=== PATIENT | female | born 1930 | race Two or more races ===

== ENCOUNTER 2017-09-04 13:10 | Observation (INO) | payer MEDICARE, OTHER ==
[2017-09-04 14:05] LABS: Hematocrit 35 % (35-47); Hemoglobin 11.3 g/dl (12.0-16.0); Mean Corpuscular HGB Conc 33 g/dl (31-36); Mean Corpuscular Hemoglobin 31 pg (27-31); Mean Corpuscular Volume 95 fL (80-97); Mean Platelet Volume 11 um3 (7.4-10.4); Red Blood Count 3.66 10^6/ul (4.0-5.4); Red Cell Distribution Width 14 % (10.5-15); White Blood Count 13.7 10^3/ul (3.5-10.8)
[2017-09-04 14:06] LABS: Add Diff/Slide Review? Slide Review Added; Comments Flag Yes
[2017-09-04 14:19] LABS: BUN/Creatinine Ratio 24.1 (8-20); C Reactive Protein 123.24 mg/L (< 5.00); Calcium 9.5 mg/dL (8.6-10.3); EGFR African American 45.7 (>60); EGFR Non-African American 35.5 (>60); Globulin 3.2 g/dL (2-4); Potassium 4.7 mmol/L (3.5-5.0); Total Bilirubin 0.6 mg/dL (0.2-1.0); Total Protein 7.2 g/dL (6.4-8.9)
[2017-09-04 14:21] LABS: Troponin I 0.03 ng/mL (<0.04)
[2017-09-04] MEDS ORDERED: NS 0.9% 1000 ML* 1,000 ML IV ONE ×2 (14:28→15:23)
--- NOTE | 2017-09-04 15:00 | RAD ---
CLINICAL HISTORY: "Flank pain". Please evaluate for left hip fracture. COMPARISON: Similar CT examination dated October 22, 2011 TECHNIQUE: Noncontrast CT examination of the abdomen and pelvis from the lung bases through the initial tuberosities. FINDINGS: VISUALIZED LUNG BASES: The lungs exhibit groundglass opacification and subpleural parenchymal thickening progressed since the 2012 CT examination. ABDOMEN AND PELVIS: Evaluation of the solid organs and vasculature is limited without intravenous contrast. The liver, spleen, pancreas and adrenal glands are grossly normal in appearance. The gallbladder is normal. The left kidney is normal in appearance without focal mass, calcification or signs of hydronephrosis. At the right kidney there is a 4 mm calcification. There are no signs of hydronephrosis. Evaluation of the gastrointestinal tract is limited without oral contrast. The small and large bowel are not distended.The patient's normal appendix is identified in the right lower quadrant measuring 6 mm in diameter (image 50). There are scattered rectosigmoid diverticula but none exhibit focal inflammatory change. There is no gross retroperitoneal or mesenteric lymphadenopathy. The pelvic viscera is normal in appearance. The coarsely calcified abdominal aorta and iliac arteries are normal in course and diameter. Multilevel degenerative changes of the lower thoracic and lumbar spine includes loss of intervertebral disc height and multilevel vacuum disc phenomenon. There are anterior bridging osteophytes along the anterior lower thoracic spine. Degenerative changes of the bilateral hips include joint space narrowing, exuberant marginal osteophyte formation, sclerotic change of the articulating services as well as subchondral lucencies. There is no definite fracture or dislocation involving either hip. IMPRESSION: 1. Degenerative changes of the bilateral hips as described above without definite fracture or dislocation. 2. Findings in the lung bases could be seen in the setting of pulmonary edema or interstitial lung disease, progressive since the 2012 CT examination. 3. Diverticulosis without acute inflammatory changes characteristic of diverticulitis. 4. Additional chronic and degenerative changes described in body the report.
[2017-09-04] MEDS ORDERED: Aztreonam (*) 2 GM VIAL IVPB ONE (15:22)
[2017-09-04] MEDS ORDERED: Levofloxacin 500 MG IVPREMIX(* 500 MG/100 ML BAG IVPB ONE (15:23)
[2017-09-04 16:24] LABS: Urine Bacteria Absent (Absent); Urine Bilirubin Negative (Negative); Urine Glucose Negative (Negative); Urine Nitrite Negative (Negative)
[2017-09-04] MEDS ORDERED: Aztreonam (*) 1 GM in NS 0.9% 100 ML* 100 ML IVPB ONE ×4 (17:00)
[2017-09-04] MEDS ORDERED: Dextrose 50% Syringe 50 ML* 25 GM/50 ML SYRINGE IV PUSH PRN (17:15)
[2017-09-04] MEDS ORDERED: Docusate CAP* 100 MG PO PRN (17:17)
[2017-09-04] MEDS ORDERED: Nitroglycerin TAB 0.4 MG* 0.4 MG TAB SL PRN (17:17)
[2017-09-04] MEDS ORDERED: Polyethylene Glycol 3350* 17 GM PACKET PO PRN (17:17)
[2017-09-04] MEDS ORDERED: HYDROcodone/ACETAMIN 5-325 MG* 1 TAB PO PRN (17:17)
--- NOTE | 2017-09-04 17:18 | ED ---
Allen Oliveira Tecjoon, scribed for Jeffry Samuel MD on 09/04/17 at 1343 . Complex/Multi-Sys Presentation - HPI Summary HPI Summary: This patient is a 86 year old female brought to [facility] by [facility]. Patient claims she has no idea why shes here, but complains of left hip pain. The pain is rated 5/10. Patient denies abdominal pain and back pain. Facility notes patient normally ambulates with little assistance, but this morning, she could not ambulate and had urinary incontinence. Facility and patient do not note any recent fall or trauma. Patient has a Hx of UTI. HPI limited due to level 5 caveat: Dementia - History Of Current Complaint Chief Complaint: EDBackInjuryPain Hx Obtained From: Patient Onset/Duration: Still Present Timing: Constant Location: Pain At: - left hip Associated Signs And Symptoms: Positive: Other - L hip pain, urinary incontinence. Negative: Abdominal Pain, Back Pain - Allergies/Home Medications Allergies/Adverse Reactions: Allergies Allergy/AdvReac Type Severity Reaction Status Date / Time Amoxicillin Allergy Unknown Verified 05/26/13 14:11 Reaction Details Sulfa Antibiotics Allergy Unknown Verified 05/26/13 14:10 Reaction Details Home Medications: Home Medications Acetaminophen [Acetaminophen Extra Stren] 500 mg PO BID 09/04/17 [History Confirmed 09/04/17] Aspirin EC Low Dose* [Ecotrin EC Low Dose 81 MG*] 81 mg PO DAILY 09/04/17 [ History Confirmed 09/04/17] Carbamide Peroxide 6.5% OTIC* [DEBROX 6.5% Otic*] 5 drop RIGHT EAR .3 DAYS A MONTH 09/04/17 [History Confirmed 09/04/17] Cholecalciferol [Vitamin D] 1,000 unit PO DAILY 09/04/17 [History Confirmed ] Cranberry (Vaccinium Macrocarp [Cranberry] 400 mg PO DAILY 09/04/17 [History Confirmed 09/04/17] Cyanocobalamin TAB* [Vitamin B12 TAB*] 1,000 mcg PO DAILY 09/04/17 [History Confirmed 09/04/17] Docusate CAP* [Colace Cap*] 100 mg PO BID PRN 09/04/17 [History Confirmed ] Ferrous Sulfate TAB* 325 mg PO MOWEFR 09/04/17 [History Confirmed 09/04/17] Fexofenadine (NF) [Guerda (NF)] 60 mg PO DAILY 09/04/17 [History Confirmed ] HYDROcodone/ACETAMIN 5-325 MG* [[place] 5-325 TAB*] 0.5 tab PO BID PRN MDD 1 tab 09/04/17 [History Confirmed 09/04/17] Levothyroxine TAB* [Synthroid TAB*] 50 mcg PO DAILY 09/04/17 [History Confirmed 09/04/17] Memantine TAB* [Namenda TAB*] 10 mg PO BID 09/04/17 [History Confirmed 09/04/17] Metoprolol Succinate XL TAB* [Toprol XL TAB*] 50 mg PO QPM 09/04/17 [History Confirmed 09/04/17] Metoprolol Tartrate TAB* [Lopressor TAB*] 25 mg PO QAM 09/04/17 [History Confirmed 09/04/17] Nitroglycerin TAB 0.4 MG* 0.4 mg SL Q5M PRN 09/04/17 [History Confirmed 09/04/17 ] Polyethylene Glycol 3350* [Miralax*] 17 gm PO DAILY PRN 09/04/17 [History Confirmed 09/04/17] glipiZIDE TAB* [Glucotrol TAB*] 5 mg PO BID 09/04/17 [History Confirmed 09/04/17 ] PMH/Surg Hx/FS Hx/Imm Hx Previously Healthy: No - PMH limited due to level 5 caveat: Dementia Neurological History: Reports: Hx Dementia - Surgical History Surgery Procedure, Year, and Place: PSHx limited due to level 5 caveat: Dementia Infectious Disease History: Unable to Obtain/Confirm Infectious Disease History: Denies: Traveled Outside the [place] in Last 30 Days - Family History Known Family History: Positive: Unknown - FHx limited due to level 5 caveat: Dementia - Social History Occupation: Unemployed Lives: [facility] Alcohol Use: None Substance Use Type: Reports: None Smoking Status (MU): Never Smoked Tobacco Review of Systems Negative: Abdominal Pain Positive: incontinence Positive: Other - L hip pain; NEGATIVE: back pain All Other Systems Reviewed And Are Negative: No Physical Exam Triage Information Reviewed: Yes Vital Signs On Initial Exam: Initial Vitals Temp Pulse Resp BP Pulse Ox 97.4 F 69 16 111/53 98 09/04/17 13:11 09/04/17 13:11 09/04/17 13:11 09/04/17 13:11 09/04/17 13:11 Vital Signs Reviewed: Yes Appearance: Positive: Well-Appearing, No Pain Distress Skin: Positive: Warm, Skin Color Reflects Adequate Perfusion Head/Face: Positive: Normal Head/Face Inspection Eyes: Positive: EOMI ENT: Positive: Normal ENT inspection Respiratory/Lung Sounds: Positive: Clear to Auscultation, Breath Sounds Present Cardiovascular: Positive: RRR. Negative: Murmur Abdomen Description: Positive: Nontender Musculoskeletal: Positive: Strength/ROM Intact, Other - pain left hip on palpation Neurological: Positive: Sensory/Motor Intact, CN Intact II-III. Negative: Alert , Oriented to Person Place, Time - only to person - Scott Coma Scale Best Eye Response: 4 - Spontaneous Best Motor Response: 6 - Obeys Commands Best Verbal Response: 5 - Oriented Coma Scale Total: 15 Diagnostics - Vital Signs Vital Signs Temp Pulse Resp BP Pulse Ox 09/04/17 13:30 66 103/46 97 09/04/17 13:20 68 93 09/04/17 13:19 120/46 09/04/17 13:11 97.4 F 69 16 111/53 98 - Laboratory Lab Results: Lab Results 09/04/17 09/04/17 Range/Units 13:50 13:50 WBC 13.7 H (3.5-10.8) 10^3/ul RBC 3.66 L (4.0-5.4) 10^6/ul Hgb 11.3 L (12.0-16.0) g/dl Hct 35 (35-47) % MCV 95 (80-97) fL MCH 31 (27-31) pg MCHC 33 (31-36) g/dl RDW 14 (10.5-15) % Plt Count 215 (150-450) 10^3/ul MPV 11 H (7.4-10.4) um3 Neut % (Auto) 71.5 (38-83) % Lymph % (Auto) 12.5 L (25-47) % [place] % (Auto) 15.0 H (1-9) % Eos % (Auto) 0.5 (0-6) % Baso % (Auto) 0.5 (0-2) % Absolute Neuts (auto) 9.8 H (1.5-7.7) 10^3/ul Absolute Lymphs (auto) 1.7 (1.0-4.8) 10^3/ul Absolute Monos (auto) 2.0 H (0-0.8) 10^3/ul Absolute Eos (auto) 0.1 (0-0.6) 10^3/ul Absolute Basos (auto) 0.1 (0-0.2) 10^3/ul Absolute Nucleated RBC 0.01 10^3/ul Nucleated RBC % 0 Sodium 139 (133-145) mmol/L Potassium 4.7 (3.5-5.0) mmol/L Chloride 107 (101-111) mmol/L Carbon Dioxide 23 (22-32) mmol/L Anion Gap 9 (2-11) mmol/L BUN 34 H (6-24) mg/dL Creatinine 1.41 H (0.51-0.95) mg/dL Est GFR ( Amer) 45.7 (>60) Est GFR (Non-Af Amer) 35.5 (>60) BUN/Creatinine Ratio 24.1 H (8-20) Glucose 226 H (70-100) mg/dL Calcium 9.5 (8.6-10.3) mg/dL Total Bilirubin 0.60 (0.2-1.0) mg/dL AST 11 L (13-39) U/L ALT 8 (7-52) U/L Alkaline Phosphatase 85 (34-104) U/L Troponin I 0.03 (<0.04) ng/mL C-Reactive Protein 123.24 H (< 5.00) mg/L Total Protein 7.2 (6.4-8.9) g/dL Albumin 4.0 (3.2-5.2) g/dL Globulin 3.2 (2-4) g/dL Albumin/Globulin Ratio 1.3 (1-3) Lipase 35 (11.0-82.0) U/L Result Diagrams: 09/04/17 13:50 09/04/17 13:50 Lab Statement: Any lab studies that have been ordered have been reviewed, and results considered in the medical decision making process. - CT CT ABD/PEL CT Interpretation Completed By: Radiologist - IMPRESSION: 1. Degenerative changes of the bilateral hips as described above without definite fracture or dislocation. 2. Findings in the lung bases could be seen in the setting of pulmonary edema or interstitial lung disease, progressive since the 2012 CT examination. 3. Diverticulosis without acute inflammatory changes characteristic of diverticulitis. 4. Additional chronic and degenerative changes described in body the report. ED physician has reviewed this radiology report. - EKG 1459 Cardiac Rate: NL EKG Rhythm: Sinus Rhythm - 74 BPM EKG Interpretation: NSR (74 BPM), normal NC, QRS. Lateral T wave flattening. Complex Multi-Symp Course/Dx Course Of Treatment: This patient is a 86 year old female brought to [facility] by [facility] for left hip pain. Facility notes patient normally ambulates with little assistance, but this morning, she couldnt ambulate and had urinary incontinence. Facility and patient does not note any recent fall or trauma. Bloodwork and Urinalysis was obtained. An EKG, taken 1459, reveals NSR ( 74 BPM), normal NC, QRS. Lateral T wave flattening. CT ABD/PEL reveals, per radiologist, IMPRESSION: 1. Degenerative changes of the bilateral hips as described above without definite fracture or dislocation. 2. Findings in the lung bases could be seen in the setting of pulmonary edema or interstitial lung disease, progressive since the 2012 CT examination. 3. Diverticulosis without acute inflammatory changes characteristic of diverticulitis. 4. Additional chronic and degenerative changes described in body the report. ED physician has reviewed this radiology report. - Diagnoses Provider Diagnoses: UTI (urinary tract infection), Sepsis - Critical Care Time Critical Care Time: 30-74 min Discharge - Discharge Plan Condition: Good Disposition: ADMITTED TO [facility] Referrals: Surya Washington MD [Primary Care Provider] - The documentation as recorded by the Allen ferro Tecjoon accurately reflects the service I personally performed and the decisions made by , Jeffry Samuel MD.
[2017-09-04] MEDS ORDERED: Acetaminophen TAB* 325 MG PO PRN (17:27)
[2017-09-04] MEDS ORDERED: Ondansetron INJ* 2 MG/ML VIAL IV PRN (17:44)
[2017-09-04] MEDS ORDERED: Carbamide Peroxide 6.5% OTIC* 15 ML BTL RIGHT EAR SCH (18:00)
[2017-09-04] MEDS ORDERED: Metoprolol Succinate XL TAB* 50 MG PO SCH ×2 (18:00→23:00)
--- NOTE | 2017-09-04 20:55 | HP ---
HISTORY AND PHYSICAL: ADDENDUM: Mrs. Hogan is an 86-year-old female with history of mild dementia, who presented to [facility] complaining of back pain after she was treated for UTI infection as outpatient. The patie nt's urinalysis was mildly positive for possible infection. She also had a CAT scan that was basical ly unremarkable, but her C-reactive protein was markedly elevated indicating ongoing infection. The patient is going to be placed on overnight observation, treated with ceftriaxone for possibility of r emaining of the E. coli infection to be the issue that cause patient's symptoms. For further details of the patient's presentation and plan, please see history and physical dictated by Glenna Gardiner NP, dictated on 09/04/17, with which I agree. [id number]/[facility] #: [id number]
--- NOTE | 2017-09-04 20:55 | HP ---
CC: Dr. Surya Washington; [facility]* HISTORY AND PHYSICAL: DATE OF ADMISSION: 09/04/17 PROVIDER: Glenna Gardiner NP ATTENDING PHYSICIAN WHILE IN THE HOSPITAL: Faith Jacobson MD* (report dictated by Glenna Gardiner NP). CHIEF COMPLAINT: 1. Inability to ambulate. 2. UTI. HISTORY OF PRESENT ILLNESS: Ms. Hogan is an 86-year-old female that was brought to the emergency room by [facility] today after she was unable to get out of bed. She currently lives in an apartment at [facility] that is not assisted living. At that time, she was complaining of back pain. It looks like on , she was treated for UTI, which grew E. coli on the culture. She was placed on Macrobid at that time. The patient was found sitting on the stretcher in the emergency room. She has no complaints. She denies any back pain. She denies any shortness of breath. She denies any fever or chills. She denies nausea, vomiting, or diarrhea. She denies any abdominal pain. She denies any rashes or lesions. We were asked by the emergency room physician to see her and admit her for UTI and inability to ambulate. PAST MEDICAL HISTORY: Significant for: 1. Type 2 diabetes. 2. Hypothyroidism. 3. Hyperlipidemia. 4. Hypertension. 5. Allergic rhinitis. 6. Coronary artery disease. 7. Dementia. 8. Osteoarthritis. 9. Gastroesophageal reflux. 10. Iron deficiency anemia. 11. She also has frequent UTIs. PAST SURGICAL HISTORY: Ectopic . HOME MEDICATIONS: 1. Debrox 6.5 otic 5 drops to right ear three days a month. 2. Acetaminophen 500 mg p.o. b.i.d. 3. Hydrocodone/acetaminophen 5/325 0.5 tablet b.i.d. p.r.n. 4. Glipizide 5 mg p.o. b.i.d. 5. Metoprolol tartrate 25 mg q.a.m. 6. Metoprolol succinate XL 50 mg p.o. q.p.m. 7. Cranberry 400 mg p.o. daily. 8. Aspirin 81 mg p.o. daily. 9. Ferrous sulfate 325 mg Friday, Friday, and Friday. 10. Vitamin D 1000 mg p.o. daily. 11. MiraLAX 17 g p.o. daily p.r.n. constipation. 12. Namenda 10 mg p.o. b.i.d. 13. Aricept 5 mg daily. 14. Colace 100 mg p.o. b.i.d. p.r.n. 15. Nitroglycerin 0.4 mg sublingual q.5 minutes p.r.n. chest pain. 16. Metformin 1000 mg p.o. daily. 17. Guerda 60 mg p.o. daily. 18. Vitamin B12 1000 mcg p.o. daily. 19. Lisinopril 10 mg p.o. daily. 20. Levothyroxine 50 mcg p.o. daily. 21. Atorvastatin 20 mg p.o. h.s. ALLERGIES: AMOXICILLIN and SULFA ANTIBIOTICS. FAMILY HISTORY: Father with prostate cancer, mother with hypertension and heart disease, brother at age 34 in a plane crash. SOCIAL HISTORY: Denies smoking , alcohol use or illicit drug use. 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 Her surrogate decision maker is her son, Valerie Hogan and his phone number is [phone]. REVIEW OF SYSTEMS: There is no documented fever. She denies any significant weight change. She denies any ear drainage. She denies any double vision. She denies any recent sore throat. She denies any chest pain. She denies shortness of breath, cough. She denies any abdominal pain. There is no nausea , vomiting, diarrhea. She denies any urinary frequency or urgency. There is no seizure, no loss of consciousness or pruritus. There is no ulceration on her skin. PHYSICAL EXAMINATION GENERAL: At this time, Ms. Hogan is an 86-year-old female patient. She is sitting on the stretcher in the ER. She does not appear to be in any acute distress. She is alert and awake. She is confused to time. She is oriented to person and place. VITAL SIGNS: Blood pressure 162/77, pulse is 82, O2 saturation is 99% on room air, temperature was 98.8 temporal. HEENT: Head is atraumatic, normocephalic. Eyes: EOMs are intact. Sclerae anicteric, not pale. Throat: Oral mucosa appears to be moist. There is no oropharyngeal erythema. NECK: Supple. LUNGS: Clear to auscultation. They are diminished in the bases bilaterally. There are no wheezes, rales, or rhonchi. HEART: S1, S2 is regular rate and rhythm. There are no murmurs, rubs, or gallops. ABDOMEN: Soft and nontender. Bowel sounds are present x4. EXTREMITIES: Pulses are +2 throughout. There is no peripheral edema. She is moving all extremities. Strength is 5/5. NEUROLOGICAL: She is awake. She is alert. She knows her name and knows where she is. She is confused to time. Her handgrips are equal. Her tongue is midline. There is no focal deficits noted. SKIN: Her skin is intact. There are no ulcerations or lesions. DIAGNOSTIC STUDIES/LAB DATA: Today's WBC is 13.7, RBC 3.66, hemoglobin is 11.3 , hematocrit is 35, platelet count is 215. Sodium is 139, potassium 4.7, chloride 107, carbon dioxide 23, anion gap of 9, BUN is 34, creatinine is 1.41, glucose was 226, lactic acid initially is 2.5, calcium is 9.5. AST is 11, ALT is 8. C- reactive protein was 123.24, lipase was 35. Urine pH was 5, specific gravity is 1.019. Urine protein, ketones, blood, nitrites, bilirubin and urobilinogen were all negative. Urine leukocyte esterase is 1+, urine wbc's was 3+, urine rbc's was trace. Urine squamous epithelial cells were present. Urine was negative for bacteria. Urine glucose was negative. Urine ascorbic acid was high. EKG today showed sinus rhythm at a rate of 74 with slight T- waves in V4, V5 and V6. CT of the abdomen. Radiologist's interpretation. Impression: 1. Degenerative changes in the bilateral hips as described above without definite fracture or dislocation. 2. Finding on lung base could be seen in the setting of pulmonary edema or interstitial lung disease, progressive since 2011. 3. Diverticulosis without acute inflammatory changes, characteristic of diverticulitis. 4. Additional chronic and degenerative changes described in the report. These degenerative changes are noted in the lower thoracic and lumbar spine. ASSESSMENT AND PLAN: Ms. Hogan is an 86-year-old female who was brought to the emergency room from [facility] where she currently lives in the [facility] that is independent living. She was brought in for the inability to get out of bed and back pain this a.m. She currently has no complaints. We were asked by the ER provider to see her due to the inability to get out bed and UTI. She will be admitted under observation for: 1. Urinary tract infection. We will give her a dose of ceftriaxone 1 g as she has a pending urine culture. Her recent urinary tract infection from 08/26/17 grew Escherichia coli and is susceptible to ceftriaxone. The current urine could represent a partially treated urinary tract infection. We will give her gentle hydration with normal saline at 75 cc per hour. We will repeat a CBC, BMP and magnesium in the a.m. We will also trend her lactic acid. She has a repeat scheduled for 1839 this evening. 2. Type 2 diabetes. We will hold her oral diabetic medications glipizide and metformin. We will get Accu-Cheks a.c. and h.s. and place her on a sliding scale with coverage a.c. and h.s. 3. Hypothyroidism. We are going to continue her levothyroxine. 4. Hyperlipidemia. We will continue her Lipitor. 5. Hypertension. We will hold her lisinopril at this time due to an elevated creatinine level. Her creatinine level from 07/08/16 was 1.17 and now her creatine today is 1.41. We can reconsider this in the morning if needed. 6. Dementia. We will continue her on her Namenda and Aricept and home medications that she currently takes. 7. Coronary artery disease. We will continue her metoprolol as ordered for the morning and p.m. 8. DVT prophylaxis. She will be placed on heparin 5000 units subcu q.8 hours. 9. Code status. She currently is a full code. This was confirmed with her healthcare proxy her son, Valerie. Her MOLST also confirms that she is a full code , but it has not been updated since 2014. 10. Fluids, electrolytes, and nutrition. She can have a carbohydrate consistent diet. We will continue gentle hydration with her with normal saline at 75 cc per hour. TIME SPENT: Time spent on this admission was approximately 60 minutes, greater than half the time was spent [id number] with the patient obtaining medical history, the other half of the time was spent going over the plan of care and implementing the plan of care. I have discussed my plan of care with my attending, Dr. Faith Jacobson and she is in agreement with my plan. I have also contacted the family, her son and her daughter are both aware of her admission to the hospital. The son states that she has a bed reserved at the assisted living part of [facility] if needed when she returns to [facility]. GLENNA GARDINER, HOME CARE ATTENDANT [id number]/[facility] #: [id number] PINKY
[2017-09-04] MEDS ORDERED: Atorvastatin* 20 MG TAB PO SCH (21:00)
[2017-09-04] MEDS ORDERED: cefTRIAXone(*) 1 GM in D5W 50 ML BAG* 50 ML IVPB SCH (22:00)
[2017-09-04] MEDS: Heparin VIAL(*) 5000 UNITS/ML VIAL (FIVE THOUSAND) SUBCUT SCH (22:34)
[2017-09-04] MEDS: Memantine TAB* 10 MG PO SCH (22:34)
[2017-09-04] MEDS: Insulin LISPRO* 1 UNITS UNIT SUBCUT SCH (22:34)
[2017-09-05] MEDS: Heparin VIAL(*) 5000 UNITS/ML VIAL (FIVE THOUSAND) SUBCUT SCH ×2 (05:20→13:39)
[2017-09-05] MEDS ORDERED: Levothyroxine TAB* 50 MCG TAB PO SCH (06:00)
[2017-09-05 06:38] LABS: Comments Flag Yes; Hematocrit 32 % (35-47); Hemoglobin 10.9 g/dl (12.0-16.0); Mean Corpuscular HGB Conc 34 g/dl (31-36); Mean Corpuscular Hemoglobin 32 pg (27-31); Mean Corpuscular Volume 93 fL (80-97); Mean Platelet Volume 11 um3 (7.4-10.4); Red Blood Count 3.41 10^6/ul (4.0-5.4); Red Cell Distribution Width 14 % (10.5-15); White Blood Count 10.8 10^3/ul (3.5-10.8)
[2017-09-05 07:01] LABS: BUN/Creatinine Ratio 20.8 (8-20); EGFR African American 67.2 (>60); EGFR Non-African American 52.2 (>60); Magnesium 1.6 mg/dL (1.9-2.7); Potassium 4.2 mmol/L (3.5-5.0)
[2017-09-05] MEDS ORDERED: Aspirin EC Low Dose* 81 MG TAB.EC PO SCH (09:00)
[2017-09-05] MEDS ORDERED: Lisinopril TAB* 10 MG PO SCH (09:00)
[2017-09-05] MEDS ORDERED: Donepezil TAB* 5 MG PO SCH (09:00)
[2017-09-05] MEDS ORDERED: Cyanocobalamin TAB* 500 MCG PO SCH (09:00)
[2017-09-05] MEDS ORDERED: Cholecalciferol TAB* 1000 UNITS PO SCH (09:00)
[2017-09-05] MEDS ORDERED: Metoprolol Tartrate TAB* 25 MG PO SCH (09:00)
[2017-09-05] MEDS ORDERED: Fexofenadine (NF) 60 MG TAB PO SCH (09:00)
[2017-09-05] MEDS: Insulin LISPRO* 1 UNITS UNIT SUBCUT SCH ×2 (09:08→12:23)
[2017-09-05] MEDS: Memantine TAB* 10 MG PO SCH (09:08)
[2017-09-05 11:43] VITALS: BP 160/76
[2017-09-05] MEDS ORDERED: cefTRIAXone(*) 1 GM in D5W 50 ML BAG* 50 ML IVPB ONE (13:06)
--- NOTE | 2017-09-05 13:17 | DCNOTE ---
Subjective Date of Service: 09/05/17 Interval History: Patient seen and examined at bedside. Patient report hip pain. She denies fever or dysuria. Patient was 2 assist with nursing out of bed this morning. Mildy confused. Family History: Unchanged from Admission Social History: Unchanged from Admission Past Medical History: Unchanged from Admission Objective Active Medications: Acetaminophen (Tylenol Tab*) 650 mg PO Q6H PRN Hydrocodone Bitart/Acetaminophen ([place] 5-325 Tab*) 0.5 tab PO BID PRN Aspirin (Aspirin Ec Low Dose*) 81 mg PO DAILY [facility] Atorvastatin Calcium (Lipitor*) 20 mg PO BEDTIME MA[facility]IZIO Carbamide Peroxide (Debrox 6.5% Otic*) 5 drop RIGHT EAR .3 DAYS A MONTH MA[facility]IZIO Cholecalciferol (Vitamin D Tab*) 1,000 units PO DAILY [facility] Cyanocobalamin (Vitamin B12 Tab*) 1,000 mcg PO DAILY [facility] Docusate Sodium (Colace Cap*) 100 mg PO BID PRN Donepezil HCl (Aricept Tab*) 5 mg PO DAILY MA[facility]IO Ferrous Sulfate (Ferrous Sulfate Tab*) 325 mg PO MOWEFR [facility]URIZIO Heparin Sodium (Porcine) (Heparin Vial(*)) 5,000 units SUBCUT Q8HR MA[facility]IZIO Ceftriaxone Sodium 1 gm/ (Dextrose) 50 mls @ 200 mls/hr IVPB ONCE ONE Insulin Human Lispro (Humalog*) 0 units SUBCUT ACHS MAURIZIO Levothyroxine Sodium (Synthroid Tab*) 50 mcg PO 0600 [facility] Memantine (Namenda Tab*) 10 mg PO BID [facility]IO Metoprolol Succinate (Toprol Xl Tab*) 50 mg PO 1800 [facility] Metoprolol Tartrate (Lopressor Tab*) 25 mg PO QAM MAURIZIO Nitroglycerin (Nitroglycerin Tab 0.4 Mg*) 0.4 mg SL Q5M PRN Ondansetron HCl (Zofran Inj*) 4 mg IV Q6H PRN Polyethylene Glycol/Electrolytes (Miralax*) 17 gm PO DAILY PRN Vital Signs - 8 hr 09/05/17 09/05/17 09/05/17 07:17 11:21 11:42 Temperature 99.2 F 98.5 F Pulse Rate 75 71 Respiratory 16 16 Rate Blood Pressure 159/71 175/68 160/76 (mmHg) O2 Sat by Pulse 95 97 Oximetry Oxygen Devices in Use Now: None Appearance: sitting up in bed, NAD Eyes: No Scleral Icterus, PERRLA Ears/Nose/Mouth/Throat: NL Teeth, Lips, Gums Neck: NL Appearance and Movements; NL JVP Respiratory: Symmetrical Chest Expansion and Respiratory Effort, Clear to Auscultation Cardiovascular: NL Sounds; No Murmurs; No JVD, RRR Abdominal: NL Sounds; No Tenderness; No Distention Extremities: No Edema Skin: No Rash or Ulcers Neurological: NL Muscle Strength and Tone, - - Alert and oriented to self, place and somewhat to time Result Diagrams: 09/05/17 06:30 09/05/17 06:30 Additional Lab and Data: . Microbiology and Other Data: . Assess/Plan/Problems-Billing Pt is an 86 y/o F w/ PMH significant for HTN, hypothyroid, type 2 DM, frequent UTIs here w/ inability to ambulate, weakness, confusion and UTI - Patient Problems (1) UTI (urinary tract infection) (2) Weakness (3) HTN (hypertension) (4) Type 2 diabetes mellitus (5) Hypothyroidism (6) DVT prophylaxis (7) Full code status Status and Disposition: OBV. Stable to be discharged to [facility]. Please see full dictated discharge summary for plan of above diagnoses.
--- NOTE | 2017-09-05 14:41 | DS ---
CC: Dr. Washington * DATE OF ADMISSION: 09/04/2017. DATE OF DISCHARGE: 09/05/2017. PRIMARY CARE PHYSICIAN: Dr. Washington. ATTENDING PHYSICIAN: Dr. Maricruz Camp * (report dictated by Katherin Gregg NP). PRIMARY DIAGNOSES: 1. Urinary tract infection. 2. Weakness, hip pain. MEDICATIONS AT DISCHARGE: New medication: 1. Ceftin 250 mg oral twice daily. The following medications are all medications that the patient came in one: 1. Aricept 5 mg oral daily. 2. Lipitor 20 mg oral at bedtime. 3. Lisinopril 10 mg oral daily. 4. Metformin 1000 mg oral twice daily. 5. Debrox five drops right ear 3 times a month. 6. Tylenol Extra Strength 500 mg oral twice daily. 7. [place] 5/325 [id number] oral twice daily as needed, not to exceed one tablet per day. 8. Glipizide 5 mg oral twice daily. 9. Lopressor 25 mg oral in the morning. 10. Toprol XL 50 mg oral in the evening. 11. Cranberry 400 mg oral daily. 12. Aspirin 81 mg oral daily. 13. Iron Sulfate 325 mg oral Friday, Friday, Friday. 14. Vitamin D3 1000 units oral daily. 15. MiraLax 17 gm oral daily as needed. 16. Namenda 10 mg oral twice daily. 17. Colace 100 mg oral twice daily as needed. 18. Nitro tab 0.4 mg sublingual every 5 minutes as needed. 19. Guerda 60 mg oral daily. 20. Vitamin B12 tablets 1000 mcg oral daily. 21. Synthroid 50 mcg oral daily. STUDY WHILE IN THE HOSPITAL: CT scan abdomen and pelvis, 09/04/2017: 1. Degenerative changes of the bilateral hips as described above without definite fracture or dislocation. 2. Findings in the lung bases could be seen in the setting of pulmonary edema or interstitial lung disease, progressive since the 2011 CT examination. 3. Diverticulosis without acute inflammatory changes characteristic of diverticulitis. 4. Additional chronic and degenerative changes described in the body the report. HISTORY OF PRESENT ILLNESS AND HOSPITAL COURSE: Ms. Hogan is an 86-year- old female with a history of hypertension, hypothyroidism, hyperlipidemia, coronary artery disease, and frequent UTI's who was brought to the emergency room as she was unable to get out of bed at her assisted living apartment at [facility]. In the emergency room, the patient was found to have aurinary tract infection and she was unable to ambulate; hence Hospitalists were asked to evaluate this patient for admission. The patient was admitted to the Medical floor and placed on IV Ceftriaxone. The patient continued to be a two person assist out of bed; [facility] was contacted and a bed became available at [facility]. Today the patient is stable to be discharged there. In regards to her urinary tract infection, she received Ceftriaxone as her previous culture from 08/26/2017 grew E. coli that was sensitive to Ceftriaxone. The culture grew E.coli sensitive to ceftriaxone. In regards to her hip pain, she continued on her home dose of [place] as well as Tylenol. She had a CT scan of the abdomen and pelvis that did not show any acute fracture. On 09/05/2017, vitals were stable. Temperature was 98.5, heart rate 71, respiratory rate 16, blood pressure 159/71, oxygen saturation 97 percent. At this point, she is stable for discharge. During her hospitalization, the patient was maintained on all of her blood pressure medications to ensure blood pressure control. Synthroid was also continued for hypothyroidism. Medications for her mild dementia were also continued and she required frequent reorientation as the urinary tract infection caused intermittent confusion. In regards to her diabetes, she was maintained on Lispro sliding scale and will be restarted on her home diabetes medications at discharge. DISCHARGE PLAN: The patient will be discharged on a consistent carb diet. The patient should follow-up with Dr. Washington within five to seven days. The patient should return to the hospital if she experiences any high fever or worsening confusion. The patient is weightbearing as tolerated and should continue to work with Physical Therapy and Occupational Therapy until she is able to return to her prior living situation. I have reviewed all these instructions with the patient and her son over the phone and they are agreeable with her discharge today. This is a summarized report of a complex medical history and hospital stay. For more details, please see the entire medical record. Time for this discharge was 60 minutes and 25 minutes were spent with the patient and her son discussing discharge plans. CONDITION ON DISCHARGE: Stable. KATHERIN GREGG, INFORMATION TECHNOLOGY ACCOUNT MANAGER [id number]/[facility] #: [id number] PINKY
[2017-09-05] MEDS ORDERED: Ferrous Sulfate TAB* 325 MG PO SCH (17:17)
== END 2017-09-05 14:45 ==
LOC: ED 13:10 → MED 19:18
PROVIDERS: ADMIT Internal Medicine; ATTEND Hospitalist
DX: N39.0 Urinary tract infection, site not specified (principal); R53.1 Weakness; M25.552 Pain in left hip; M25.551 Pain in right hip; I10 Essential (primary) hypertension; R91.8 Other nonspecific abnormal finding of lung field; R10.9 Unspecified abdominal pain; E03.9 Hypothyroidism, unspecified; E78.5 Hyperlipidemia, unspecified; I25.10 Atherosclerotic heart disease of native coronary artery without angina pectoris; E11.9 Type 2 diabetes mellitus without complications; Z79.84 Long term (current) use of oral hypoglycemic drugs; K57.90 Diverticulosis of intestine, part unspecified, without perforation or abscess without bleeding; Z79.899 Other long term (current) drug therapy
CPT/HCPCS: 36415; 74176; 80048; 80053; 81003; 81015; 83605; 83690; 83735; 84484; 85025; 86140; 87040; 87077; 87086; 87186; 87641; 93005; 96365; 99285; A9270-GY; G0378; J0696; J1644; J1956

== ENCOUNTER 2018-08-30 07:10 | Emergency (ER) | payer MEDICARE, OTHER ==
[2018-08-30] MEDS ORDERED: Tetan/Diph/Pertus SYR(Tdap)* 0.5 ML SYR(BOOSTRIX) use SYR IM ONE (07:21)
[2018-08-30] MEDS ORDERED: Morphine VIAL* 4 MG/ML VIAL (1 ml vial) IV ONE (07:24)
--- NOTE | 2018-08-30 07:37 | ED ---
Adult Trauma - HPI Summary HPI Summary: Pt is an 87 y/o female brought in by EMS who presents to the ED s/p fall. She states she doesnt remember falling, but EMS found her on the floor. Pt denies any LOC although she doesnt remember. Pt c/o right shoulder pain, right hip pain, and mild neck pain. She has abrasions to her face and left knee. Pt denies any abdominal pain, WALLACE, or CP. Pt [facility] a jail. PMHx HTN, DM, dementia, and UTI. She takes ASA occasionally. Pt is unsure of her last Tetanus. 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 Negative: Chest Pain, Abdominal Pain - Additional Pertinent History Primary Care Physician: [id number] - Allergy/Home Medications Allergies/Adverse Reactions: Allergies Allergy/AdvReac Type Severity Reaction Status Date / Time amoxicillin Allergy Unknown Verified 08/30/18 07:14 Reaction Details Sulfa (Sulfonamide Allergy Unknown Verified 08/30/18 07:14 Antibiotics) Reaction Details Home Medications: Home Medications Cyanocobalamin (Vitamin B-12) [B-12] 1,000 mcg PO DAILY 08/30/18 [History Confirmed 08/30/18] Docusate Sodium [Colace] 100 mg PO DAILY 08/30/18 [History Confirmed 08/30/18] Fexofenadine HCl [Allergy Relief] 60 mg PO DAILY 08/30/18 [History Confirmed ] Insulin Glargine,Hum.rec.anlog [Lantus Solostar 5x3 ML PENS] 23 units SUBCUT DAILY 08/30/18 [History Confirmed 08/30/18] PMH/Surg Hx/FS Hx/Imm Hx Endocrine/Hematology History: Reports: Hx Diabetes, Hx Anemia Cardiovascular History: Reports: Hx Hypertension History: Reports: Other Problems/Disorders - UTI Sensory History: Reports: Hx Contacts or Glasses, Hx Hearing Aid Opthamlomology History: Reports: Hx Contacts or Glasses Neurological History: Reports: Hx Dementia - Surgical History Surgery Procedure, Year, and Place: Ectopic - Immunization History Date of Tetanus Vaccine: unknown Infectious Disease History: No Infectious Disease History: Denies: Traveled Outside the [place] in Last 30 Days - Family History Known Family History: Positive: Cardiac Disease, Hypertension, Other - [place] - Social History Alcohol Use: Occasionally Hx Substance Use: No Substance Use Type: Reports: None Hx Tobacco Use: No Smoking Status (MU): Never Smoked Tobacco Review of Systems Negative: Chest Pain Negative: Abdominal Pain Positive: Arthralgia - right hip, right shoulder, Myalgia - neck pain Positive: Other - abrasions Neurological: Other - confusion Negative: Headache All Other Systems Reviewed And Are Negative: Yes Physical Exam - Summary Physical Exam Summary: Appearance: Well appearing, no pain distress Skin: warm, dry, reflects adequate perfusion, complex 4 cm x 3 cm stellate laceration to dorsal right wrist, abrasion and hematoma over left knee, abrasion just below jawline on the left neck, abrasion to bridge of nose, skin tear of dorsum of right hand Head/face: normal Eyes: EOMI, JOSE ENT: mucous membranes moist, occlusion is normal Neck: supple, non-tender Respiratory: CTA, breath sounds present Cardiovascular: RRR, pulses symmetrical Abdomen: non-tender, soft Bowel Sounds: present Musculoskeletal: proximal humeral tenderness, no clavicular tenderness, no pain with ROM of right elbow, discomfort with flexion of right hip Neuro: normal, sensory motor intact, A&Ox3 GCS: 14 Triage Information Reviewed: Yes Vital Signs On Initial Exam: Initial Vitals Temp Pulse Resp BP Pulse Ox 98.7 F 68 14 219/87 97 08/30/18 07:18 08/30/18 07:18 08/30/18 07:18 08/30/18 07:18 08/30/18 07:18 Vital Signs Reviewed: Yes Procedures - Laceration/Wound Repair 1 Location: upper extremity - R dorsal wrist Description: Stellate Anesthesia: Local, 1.0% - 5cc Length, Depth and Shape: [id number] Betadine Prep?: No - chlorhexidine Irrigated w/ Saline (ccs): 500 - with ZeroWet Laceration/Wound Explored: clean, no foreign body removed Closure: Multilayer Suture Type: Other - dermal layer - 3 simple interruped, 3-0 Vicryl. Skin layer with 4 vertical mattress sutures 3-0 prolene. 3 steristrips also placed. Number of Sutures: 7 Layer Closure?: Yes Sterile Dressing Applied?: Yes - pressure dressing, secured with [employer] - Vital Signs Vital Signs Temp Pulse Resp BP Pulse Ox 08/30/18 07:18 98.7 F 68 14 219/87 97 - Laboratory Result Diagrams: 08/30/18 07:30 08/30/18 07:30 Lab Statement: Any lab studies that have been ordered have been reviewed, and results considered in the medical decision making process. - Radiology CXR Radiology Interpretation Completed By: Radiologist Summary of Radiographic Findings: PULMONARY INTERSTITIAL EDEMA. PROXIMAL RIGHT HUMERUS FRACTURE. ED physician reviewed radiology report. Knee XR Radiology Interpretation Completed By: Radiologist Summary of Radiographic Findings: 1. OSTEOPENIA. 2. PERIPHERAL ARTERIAL DISEASE. 3. NO ACUTE OSSEOUS INJURY. THE DEGREE OF OSTEOPENIA MAY MAKE A NONDISPLACED FRACTURE. RADIOGRAPHICALLY OCCULT. IF SYMPTOMS PERSIST, RECOMMEND REPEAT IMAGING. ED physician reviewed radiology report. Wrist XR Radiology Interpretation Completed By: Radiologist Summary of Radiographic Findings: 1. OSTEOPENIA. 2. OSTEOARTHRITIS. 3. NO ACUTE OSSEOUS INJURY. THE DEGREE OF OSTEOPENIA MAY MAKE A NONDISPLACED FRACTURE. RADIOGRAPHICALLY OCCULT. IF SYMPTOMS PERSIST, RECOMMEND REPEAT IMAGING. ED physician reviewed radiology report. Shoulder XR Radiology Interpretation Completed By: Radiologist Summary of Radiographic Findings: SLIGHTLY DISPLACED FRACTURE OF THE SURGICAL NECK OF THE RIGHT HUMERUS. ED physician reviewed radiology report. Hip/Pelvis XR Radiology Interpretation Completed By: Radiologist Summary of Radiographic Findings: 1. OSTEOPENIA. 2. OSTEOARTHRITIS. 3. PERIPHERAL ARTERIAL DISEASE. 4. NO RADIOGRAPHIC EVIDENCE FOR HIP FRACTURE. X-RAYS MAY BE NEGATIVE WITH NONDISPLACED. HIP FRACTURE, IF THERE IS PERSISTENT CLINICAL CONCERN, RECOMMEND CONSIDERATION OF MRI. IN THE SETTING OF CONTRAINDICATION TO MRI OR LIMITATION IN EMERGENT ACCESS TO MRI, CT WOULD BE SUGGESTED. ED physician reviewed radiology report. - CT Brain CT CT Interpretation Completed By: Radiologist Summary of CT Findings: NO ACUTE INTRACRANIAL PATHOLOGY. ED physician reviewed radiology report. Cervical Spine CT CT Interpretation Completed By: Radiologist Summary of CT Findings: 1. OSTEOPENIA. 2. DEGENERATIVE DISC DISEASE AND OSTEOARTHRITIS. 3. NO ACUTE OSSEOUS INJURY OF THE CERVICAL SPINE. ED physician reviewed radiology report. - EKG 7:42 Cardiac Rate: NL - 67 bpm EKG Rhythm: Sinus Rhythm ST Segment: Non-Specific Summary of EKG Findings: Low voltage, nl axis Re-Evaluation - Re-Evaluation First Eval Re-Evaluation Time: 11:02 Change: Improved Comment: Pt is able to bear weight without pain. Adult Trauma Course/Dx - Course Course Of Treatment: Nurse's note reviewed. Patient's right humeral fracture secured with a sling. The extremity is neurovascularly intact. She is able to weight-bear and has not complained of pain in her right hip after initial evaluation. X-ray of the hip, knee and wrist all negative for obvious fracture. There is no evidence for occult fracture. The wrist was a complex repair done by me. Pressure dressing applied. She also has a UTI and was given IV Rocephin here. She will continue on Keflex for both the wound and urinary source. Her daughter wishes for her to return to the jail. She was done so in stable condition with directions to follow-up with orthopedics. - Diagnoses Provider Diagnoses: UTI (urinary tract infection), Fall, Laceration of wrist, right, Right humeral fracture Discharge - Sign-Out/Discharge Documenting (check all that apply): Patient Departure - Discharge - Discharge Plan Condition: Improved Disposition: ALF FACILITY Prescriptions: Cephalexin CAP* [Keflex CAP*] 500 mg PO TID #30 cap Patient Education Materials: Laceration (ED), Urinary Tract Infection in Women (ED), Proximal Humerus Fracture (ED) Referrals: Surya Washington MD [Primary Care Provider] - Dayo Harvey MD [Medical Doctor] - Additional Instructions: Return to [facility]. Must remain in sling for fracture and in the right shoulder. Follow-up with orthopedics for this. Sutures to be removed by primary doctor in 12-14 days. Ice to sore shoulder. CT of the head, neck were negative. X-rays of the wrist, left knee, right hip all negative. She is able to bear weight without pain. If she continues to complain of pain in the right hip return to ER for CAT scan. Return with fever, concern for infection of the wound, worse or other concerns. Recommended prescription is as follows: Keflex 500 mg one by mouth 3 times a day for 10 days #30 Increased [place] dosing to one tablet up to 3 times per day as needed for pain - Billing Disposition and Condition Condition: IMPROVED Disposition: [facility] Facility - Attestation Statements Document Initiated by Silvanaibcarolina: Yes Documenting Scribe: Laine Bella Provider For Whom Silvanaibcarolina is Documenting (Include Credential): Robin Singletary MD Scribe Attestation: Laine Oliveira, scribed for Robin Singletary MD on 08/30/18 at 1409. Scribe Documentation Reviewed: Yes Provider Attestation: The documentation as recorded by the Laine ferro accurately reflects the service I personally performed and the decisions made by , Robin Singletary MD Status of Scribe Document: Viewed
[2018-08-30 07:43] LABS: ABS Basophils 0.1 10^3/ul (0-0.2); ABS Eosinophils 0.2 10^3/ul (0-0.6); ABS Lymphocytes 1.8 10^3/ul (1.0-4.8); ABS Monocytes 0.9 10^3/ul (0-0.8); ABS Nucleated RBC 0 10^3/ul; Hematocrit 38 % (35-47); Hemoglobin 12.1 g/dl (12.0-16.0); Lymphocyte % 19.8 %; Mean Corpuscular HGB Conc 32 g/dl (31-36); Mean Corpuscular Hemoglobin 30 pg (27-31); Mean Corpuscular Volume 93 fL (80-97); Nucleated Red Blood Cells % 0; Platelet Count 206 10^3/ul (150-450); Red Blood Count 4.03 10^6/ul (4.00-5.40); Red Cell Distribution Width 15 % (10.5-15)
[2018-08-30 07:53] LABS: INR 0.88 (0.77-1.02)
[2018-08-30 08:00] LABS: EGFR Non-African American 37.3 (>60)
[2018-08-30 08:33] LABS: Urine Appearance Cloudy; Urine Blood 1+ (Negative); Urine Color Yellow; Urine Ketones Negative (Negative); Urine Protein Negative (Negative); Urine Red Blood Cell Trace(0-2/hpf) (Absent); Urine Specific Gravity 1.017 (1.010-1.030); Urine Urobilinogen Negative (Negative); Urine White Blood Cell 2+(11-20/hpf) (Absent)
[2018-08-30] MEDS ORDERED: cefTRIAXone(*) 1 GM in NS 0.9% 50 ML* 50 ML IVPB ONE (10:22)
[2018-08-30] MEDS ORDERED: NS 0.9% 1000 ML* 1,000 ML IV ONE (10:24)
[2018-08-30] MEDS ORDERED: HYDROcodone/ACETAMIN 5-325 MG* 1 TAB PO ONE (12:11)
[2018-08-30 12:16] VITALS: BP 183/87
--- NOTE | 2018-09-01 05:50 | PN ---
Progress Note - Progress Note Date of Service: 08/30/18 Note: Pt. was seen 08/30 and started on keflex for a UTI. Preliminary culture today is growing >100,000. Pending final culture.
--- NOTE | 2018-09-02 08:38 | ED ---
Progress - Progress Note Progress Note: Final culture results reveal sensitivity to first generation cephalosporin. Patient was started on Keflex. Appropriate treatment. No change in treatment at this time. Re-Evaluation - Re-Evaluation First Eval Re-Evaluation Time: 11:02 Change: Improved Comment: Pt is able to bear weight without pain. Course/Dx - Course Course Of Treatment: Nurse's note reviewed. Patient's right humeral fracture secured with a sling. The extremity is neurovascularly intact. She is able to weight-bear and has not complained of pain in her right hip after initial evaluation. X-ray of the hip, knee and wrist all negative for obvious fracture. There is no evidence for occult fracture. The wrist was a complex repair done by me. Pressure dressing applied. She also has a UTI and was given IV Rocephin here. She will continue on Keflex for both the wound and urinary source. Her daughter wishes for her to return to the correction. She was done so in stable condition with directions to follow-up with orthopedics. - Diagnoses Provider Diagnoses: UTI (urinary tract infection), Fall, Laceration of wrist, right, Right humeral fracture Discharge - Sign-Out/Discharge Documenting (check all that apply): Post-Discharge Follow Up - Discharge Plan Condition: Improved Disposition: [facility] Prescriptions: Cephalexin CAP* [Keflex CAP*] 500 mg PO TID #30 cap Patient Education Materials: Laceration (ED), Urinary Tract Infection in Women (ED), Proximal Humerus Fracture (ED) Referrals: Surya Washington MD [Primary Care Provider] - Dayo Harvey MD [Medical Doctor] - Additional Instructions: Return to [facility]. Must remain in sling for fracture and in the right shoulder. Follow-up with orthopedics for this. Sutures to be removed by primary doctor in 12-14 days. Ice to sore shoulder. CT of the head, neck were negative. X-rays of the wrist, left knee, right hip all negative. She is able to bear weight without pain. If she continues to complain of pain in the right hip return to ER for CAT scan. Return with fever, concern for infection of the wound, worse or other concerns. Recommended prescription is as follows: Keflex 500 mg one by mouth 3 times a day for 10 days #30 Increased [place] dosing to one tablet up to 3 times per day as needed for pain - Billing Disposition and Condition Condition: IMPROVED Disposition: Senior Care Facility
== END 2018-08-30 12:11 ==
LOC: ED 07:10
DX: N39.0 Urinary tract infection, site not specified (principal); S61.511A Laceration without foreign body of right wrist, initial encounter; S42.211A Unspecified displaced fracture of surgical neck of right humerus, initial encounter for closed fracture; W19.XXXA Unspecified fall, initial encounter; Y92.9 Unspecified place or not applicable; Z23 Encounter for immunization; M85.831 Other specified disorders of bone density and structure, right forearm; M19.031 Primary osteoarthritis, right wrist; M85.862 Other specified disorders of bone density and structure, left lower leg; I73.9 Peripheral vascular disease, unspecified; E11.9 Type 2 diabetes mellitus without complications; Z79.4 Long term (current) use of insulin; Z88.0 Allergy status to penicillin; Z88.2 Allergy status to sulfonamides
CPT/HCPCS: 36415; 70450; 71045; 72125; 80053; 81003; 81015; 82550; 83605; 84484; 85025; 85610; 87077; 87086; 87186; 90471; 90715; 93005; 96365; 96375; 99284; J0696; J2270

== ENCOUNTER 2018-12-05 18:43 | Inpatient (IN) | payer MEDICARE, OTHER ==
--- NOTE | 2018-12-05 19:09 | ED ---
HPI Chest Pain - HPI Summary HPI Summary: This patient is a 88 year old female brought in by ambulance to [facility] with a chief complaint of chest pain since 2 hours ago. Patient was sent by [facility] for the chest pain, which lasted approximately 1 minute before easing. Patient states that she is fine currently. The pain is rated 0/10 in severity. Symptoms aggravated by nothing. Symptoms alleviated by nothing. Patient denies nausea, SOB. - History of Current Complaint Chief Complaint: EDChestPainROMI Time Seen by Provider: 12/05/18 18:57 Hx Obtained From: Patient Onset/Duration: Started Hours Ago, Resolved Timing: Intermittent Initial Severity: Moderate Current Severity: None Pain Intensity: 0 Pain Scale Used: 0-10 Numeric Aggravating Factor(s): Nothing Alleviating Factor(s): Nothing Associated Signs and Symptoms: Positive: Negative - nausea, SOB - Additional Pertinent History Primary Care Physician: [id number] - Allergy/Home Medications Allergies/Adverse Reactions: Allergies Allergy/AdvReac Type Severity Reaction Status Date / Time amoxicillin Allergy Unknown Verified 08/30/18 07:14 Reaction Details Sulfa (Sulfonamide Allergy Unknown Verified 08/30/18 07:14 Antibiotics) Reaction Details Home Medications: Home Medications Insulin Lispro [Humalog Kwikpen U-100] 7 units SUBCUT AC 12/05/18 [History Confirmed 12/05/18] PMH/Surg Hx/FS Hx/Imm Hx Previously Healthy: No Endocrine/Hematology History: Reports: Hx Diabetes, Hx Anemia Cardiovascular History: Reports: Hx Hypertension History: Reports: Other Problems/Disorders - UTI Sensory History: Reports: Hx Contacts or Glasses, Hx Hearing Aid Opthamlomology History: Reports: Hx Contacts or Glasses Neurological History: Reports: Hx Dementia - Surgical History Surgery Procedure, Year, and Place: Ectopic - Immunization History Date of Tetanus Vaccine: unknown Immunizations Up to Date: Yes Infectious Disease History: No Infectious Disease History: Denies: Traveled Outside the [place] in Last 30 Days - Family History Known Family History: Positive: Cardiac Disease, Hypertension, Other - [place] - Social History Lives: At [facility] Alcohol Use: Occasionally Hx Substance Use: No Substance Use Type: Reports: None Hx Tobacco Use: No Smoking Status (MU): Never Smoked Tobacco Review of Systems Negative: Fever Positive: Chest Pain Negative: Shortness Of Breath Negative: Nausea All Other Systems Reviewed And Are Negative: Yes Physical Exam - Summary Physical Exam Summary: Appearance: The patient is well-nourished in no acute distress and in no acute pain. Skin: The skin is warm and dry and skin color reflects adequate perfusion. HEENT: The head is normocephalic and atraumatic. The pupils are equal and reactive. The conjunctivae are clear and without drainage. Nares are patent and without drainage. Mouth reveals moist mucous membranes and the throat is without erythema and exudate. The external ears are intact. The ear canals are patent and without drainage. The tympanic membranes are intact. Neck: The neck is supple with full range of motion and non-tender. There are no carotid bruits. There is no neck vein distension. Respiratory: Chest is non-tender. Lungs are clear to auscultation and breath sounds are symmetrical and equal. Cardiovascular: Heart is regular rate and rhythm. There is no murmur or rub auscultated. There is no peripheral edema and pulses are symmetrical and equal. Abdomen: The abdomen is soft and non-tender. There are normal bowel sounds heard in all four quadrants and there is no organomegaly palpated. Musculoskeletal: There is no back tenderness noted. Extremities are non-tender with full range of motion. There is good capillary refill. There is no peripheral edema or calf tenderness elicited. Neurological: Patient is alert and oriented to person, place and time. The patient has symmetrical motor strength in all four extremities. Cranial nerves are grossly intact. Deep tendon reflexes are symmetrical and equal in all four extremities. Psychiatric: The patient has an appropriate affect and does not exhibit any anxiety or depression. Triage Information Reviewed: Yes Vital Signs On Initial Exam: Initial Vitals Temp Pulse Resp BP Pulse Ox 98 F 79 16 144/71 98 12/05/18 18:45 12/05/18 18:45 12/05/18 18:45 12/05/18 18:45 12/05/18 18:45 Vital Signs Reviewed: Yes Diagnostics - Vital Signs Vital Signs Temp Pulse Resp BP Pulse Ox 12/05/18 18:45 98 F 79 16 144/71 98 - Laboratory Result Diagrams: 12/06/18 05:16 12/06/18 05:16 Lab Statement: Any lab studies that have been ordered have been reviewed, and results considered in the medical decision making process. - Radiology CXR Radiology Interpretation Completed By: ED Physician Summary of Radiographic Findings: CXR reveals, per ED physician, No acute process. Unchanged from 10/22/11. Pending official report. - EKG 1948 Cardiac Rate: NL EKG Rhythm: Sinus Rhythm - 77 BPM Summary of EKG Findings: An EKG, taken 1948, reveals NSR (77 BPM), Anterolateral ST depression, probable ischemia Chest Pain Course/Dx - Course Course Of Treatment: Ms. Hogan was brought in by EMS with a story that she had had a short episode of chest pain that has now resolved. There was a story that EMS got [facility] and that is the story that the patient gives me although she has significant dementia. She was nontoxic in appearance with stable vital signs. Labs and EKG were ordered and patient was put on a monitor. Her initial troponin returned positive at 1.4 and EKG was just being performed at that time. EKG showed no STEMI but suggested anterolateral ischemia with ST depressions. She is on a baby aspirin a day but some clear to me whether she's had that today so she was given aspirin and heparin and I contacted Dr. Dixon. Dr. Dixon recommended Plavix and Lopressor which were given and admission holding off on catheterization at this point. The patient remained stable here in the emergency department and pain free. The hospitalist were contacted for admission - Diagnoses Provider Diagnoses: NSTEMI (non-ST elevated myocardial infarction) - Provider Notifications Discussed Care Of Patient With: Jas Dixon - Cardiology Time Discussed With Above Provider: 19:58 - We discussed patient care with Dr. Dixon (Cardiology) at 1946 and they agreed to accept the patient. - Critical Care Time Critical Care Time: 30-74 min Discharge - Sign-Out/Discharge Documenting (check all that apply): Patient Departure Patient Received Moderate/Deep Sedation with Procedure: No - Discharge Plan Condition: Stable Disposition: ADMITTED TO [facility] - Billing Disposition and Condition Condition: STABLE Disposition: Admitted to [facility] - Attestation Statements Document Initiated by Cathy: Yes Documenting Scribe: Damon Villa Provider For Whom Cathy is Documenting (Include Credential): George Silvestre MD Scribe Attestation: Damon Oliveira scribed for George Silvestre MD on 12/06/18 at 1203. Scribe Documentation Reviewed: Yes Provider Attestation: The documentation as recorded by the Norma ferrojoon Allen accurately reflects the service I personally performed and the decisions made by me, George Silvestre MD Status of Scribe Document: Viewed
[2018-12-05 19:25] LABS: INR 0.94 (0.77-1.02)
[2018-12-05 19:28] LABS: ABS Basophils 0 10^3/ul (0-0.2); ABS Eosinophils 0.1 10^3/ul (0-0.6); ABS Lymphocytes 1.3 10^3/ul (1.0-4.8); ABS Neutrophils 7.4 10^3/ul (1.5-7.7); ABS Nucleated RBC 0 10^3/ul; Eosinophil % 0.8 %; Hematocrit 38 % (33-41); Hemoglobin 12.3 g/dL (12.0-16.0); Lymphocyte % 13.5 %; Mean Corpuscular HGB Conc 32 g/dL (31-36); Mean Corpuscular Hemoglobin 30 pg (27-31); Mean Corpuscular Volume 92 fL (80-97); Mean Platelet Volume 11.1 fL (7.4-10.4); Nucleated Red Blood Cells % 0.1; Platelet Count 208 10^3/uL (150-450); Red Blood Count 4.15 10^6 /uL (3.70-4.87); Red Cell Distribution Width 15 % (10.5-15); White Blood Count 9.9 10^3/uL (3.5-10.8)
--- OUTSIDE RECORDS SUMMARY | 2018-12-05 19:28 | XMS REPORT | Continuity of Care Document ---
:1930 External Reference #:[id number] Author Name Marcelo Olsen Care Team Providers Name Role Phone Surya Washington M.D. Primary Care Physician Unavailable Payers Date Identification Numbers Payment Provider Subscriber Policy Number: [id number] Medicare - NGS Kellee Hogan PayID: [id number] [address] [place] [address] Policy Number: [id number] Aetna Ppo/Pos/Epo/Nap Kellee Hogan Group Number: [id number] [address] PayID: [id number] [place] [address] Advance Directives Description No Information Available Problems Date Description Provider Status Onset: Essential hypertension Active Onset: Hypercholesterolemia Active Onset: Arthritis Active Onset: H/O Malignant melanoma Active Onset: Gastroesophageal reflux disease Active Onset: Type 2 diabetes mellitus Active Onset: 10/25/2016 Posterior capsule opacification Ida Leos O.D. Active Onset: 10/25/2016 Pseudophakia Ida Leos O.D. Active Onset: Hypothyroidism Active Onset: Hyperlipidemia Active Onset: Allergic rhinitis Active Onset: History of urinary tract infection Active Onset: Constipation Active Onset: Fatigue Active Onset: Dementia Active Onset: Osteoarthritis of hip Active Onset: Vitamin D deficiency Active Onset: Iron deficiency Active Onset: Hearing loss Active Onset: Muscle weakness Active Onset: Unsteadiness present Active Family History Date Family Member(s) Observation Comments Father Unknown Mother Glaucoma Mother Hypertension Social History Type Date Description Comments Sex Unknown Marital Status Legal Status: 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 ETOH Use Denies alcohol use Tobacco Use Start: Unknown Patient has never smoked Recreational Drug Use Denies Drug Use Smoking Status Reviewed: 11/18/18 Patient has never smoked Allergies, Adverse Reactions, Alerts Date Description Reaction Status Severity Comments 09/30/2016 Seasonal Active 09/30/2016 Sulfa Antibiotics Active 09/30/2016 Amoxicillin Active Medications Medication Date Status Form Strength Qnty SIG Indications Ordering Provider Milk Of Active Suspension 400mg/5ML Unknown Magnesia 0 Dulcolax Active Suppository 10mg Unknown 0 Glipizide Active Tablets 5mg Unknown 0 Acetaminophen Active Tablets 500mg Unknown 0 Vitamin B12 TR Active Tablets ER 1000mcg Unknown 0 Namenda Active Tablets 10mg Unknown 0 Vitamin D3 Active Chewtabs 1000Unit Unknown Adult Gummies [address] Adult Active Table[address] 81mg Unknown Low Dose 0 Cranberry Active Capsules 400mg Unknown 0 Lisinopril Active Tablets 10mg Unknown 0 Lipitor Active Tablets 20mg Unknown 0 Ferosul Active Elixir 220(44Fe) Unknown 0 mg/5ML Levothyroxine Active Tablets 50mcg Unknown Sodium 0 Mylanta Active Suspension 200-200-20 Unknown 0 mg/5ML Hydrocodone-Kj Active Tablets 5-325mg Unknown taminophen 0 Metoprolol Active Tablets 50mg Unknown Tartrate 0 Nitroglycerin Active Tablets Sub 0.4mg Unknown 0 Docusate Sodium Active Capsules 100mg Unknown 0 Donepezil HCL Active Tablets 10mg Unknown 0 Metformin HCL Active Tablets ER 500mg Unknown ER (Mod) 0 24HR Lantus Solostar Active Solution 100Unit/ML Unknown 0 Pen-Inject Humalog Active Solution 100Unit/ML Unknown 0 Cartridge Fexofenadine Active Tablets 60mg Unknown HCL 0 Fexofenadine Hx Tablets 60mg Ida Glover HCL 8 - Deric, Kannan O.D. Medications Administered in Office Medication Date Status Form Strength Qnty SIG Indications Ordering Provider Crizal Administered Injection Dumont 4 Buchanan, A.B.O. Crizal Administered Injection Kimmy 2 Madhav Marie, Gilmaa Immunizations Description No Information Available Vital Signs Description No Information Available Results Description No Information Available Procedures Date Code Description Status 11/18/2018 76125 Est Patient Comprehensive Exam Completed 11/12/2017 68578 Est Patient Comprehensive Exam Completed 10/25/2016 04718 New Patient Comprehensive Exam Completed 05/25/2013 35250 New Patient Comprehensive Exam Completed 08/03/2008 83591 Cataract Surgery Complex Completed 07/21/2008 36174 Ophthalmic Biometry Completed 07/20/2008 70596 Cataract Surgery Complex Completed 07/11/2008 67785 Ophthalmic Biometry Completed 07/11/2008 49232 Scanning Laser W/Interp And Report Completed 07/11/2008 79567 Computerized Corneal Topography Completed 06/17/2008 08901 Est Patient Comprehensive Exam Completed 12/10/2007 61832 Est Patient Intermediate Exam Completed 06/11/2007 31892 Determination Of Refractive State Completed 06/11/2007 48071 Est Patient Comprehensive Exam Completed 12/09/2006 66383 Est Patient Intermediate Exam Completed 10/11/2004 97247 Determination Of Refractive State Completed 10/11/2004 18768 Est Patient Comprehensive Exam Completed 06/29/2004 66339 Excision Lesion Eyelid Completed 06/14/2004 13430 Rescheduled Appointment Completed 02/15/2004 114 Polycarb SV Completed 02/15/2004 113 Crizal Completed 09/01/2002 113 Crizal Completed Encounters Type Date Location Provider Dx Diagnosis Office Visit 07/11/2008 Hemanth Garcia, 366.16 Senile Nuclear 11:15a , rajeev Ortega Sclerosis / Cataract Office Visit 05/18/2004 Hemanth Garcia, 373.2 Chalazion 10:45a , rajeev Ortega Plan of Treatment 11/18/2018 - Ida Leos O.D.E11.9 Type 2 diabetes mellitus without complicationsComments:You have diabetes. I do not detect any changes in both of your retinas from diabetes at this time. Proper control of your diabetes is important for the health of your eyes. Changes in your eyes from diabetes can happen without symptoms, so it is important that you have your eyes examined.Follow up:1 YEAR You can expect to have your eyes dilated at your next visit. If Dr. Leos orders any additional testing, it may require extra time. We recommend that you bring sunglasses, as dilation drops often make you light sensitive until they wear off. We always recommend you bring someone to drive you home if you are uncomfortable driving with your eyes dilated. If you have any questions before your next visit, feel free to call our office at [phone].Z96.1 Presence of intraocular lensComments:Smoking can increase the risk of developing or worsening any eye related disease, as well as affect your overall health. If you are a smoker, we strongly recommend that you quit.If you are not a smoker, we strongly recommend that you do not start. The artificial lens implants in both eyes appear to be stable at this time.
--- OUTSIDE RECORDS SUMMARY | 2018-12-05 19:28 | XMS REPORT | Continuity of Care Document ---
:1930 External Reference #:[id number] Author Name Ida Leos O.D. Address [address] [facility] [place] [address] Care Team Providers Name Role Phone Surya Washington M.D. 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 Crizal Administered Injection Kimmy 2 Madhav MarieMg Immunizations Description No Information Available Vital Signs Description No Information Available Results Description No Information Available Procedures Date Code Description Status 11/12/2017 15031 Est Patient Comprehensive Exam Completed 10/25/2016 44805 New Patient Comprehensive Exam Completed 05/25/2013 67323 New Patient Comprehensive Exam Completed 08/03/2008 29487 Cataract Surgery Complex Completed 07/21/2008 57435 Ophthalmic Biometry Completed 07/20/2008 69726 Cataract Surgery Complex Completed 07/11/2008 05828 Ophthalmic Biometry Completed 07/11/2008 32737 Scanning Laser W/Interp And Report Completed 07/11/2008 15339 Computerized Corneal Topography Completed 06/17/2008 62941 Est Patient Comprehensive Exam Completed 12/10/2007 26755 Est Patient Intermediate Exam Completed 06/11/2007 61731 Determination Of Refractive State Completed 06/11/2007 69557 Est Patient Comprehensive Exam Completed 12/09/2006 19372 Est Patient Intermediate Exam Completed 10/11/2004 53021 Determination Of Refractive State Completed 10/11/2004 59099 Est Patient Comprehensive Exam Completed 06/29/2004 37202 Excision Lesion Eyelid Completed 06/14/2004 21452 Rescheduled Appointment Completed 02/15/2004 114 Polycarb SV Completed 02/15/2004 113 Crizal Completed 09/01/2002 113 Crizal Completed Encounters Type Date Location Provider Dx Diagnosis Office Visit 07/11/2008 Hemanth Garcia, 366.16 Senile Nuclear 11:15a , rajeev Ortega Sclerosis / Cataract Office Visit 05/18/2004 Hemanth Garcia, 373.2 Chalazion 10:45a , rajeev Ortega Plan of Treatment 11/12/2017 - Ida Leos O.D.E11.9 Type 2 diabetes mellitus without complicationsComments:You have diabetes. I do not detect any changes in both of your retinas from diabetes at this time. Proper control of your diabetes is important for the health of your eyes. Changes in your eyes from diabetes can happen without symptoms, so it is important that you have your eyes examined.Follow up:1 YEARZ96.1 Presence of intraocular lensComments:Smoking can increase the [...]
[2018-12-05 19:37] LABS: ALT 21 U/L (7-52); AST 20 U/L (13-39); Albumin 3.7 g/dL (3.2-5.2); Albumin/Globulin Ratio 1.2 (1-3); Alkaline Phosphatase 140 U/L (34-104); Anion Gap 10 mmol/L (2-11); BUN/Creatinine Ratio 18.5 (8-20); Blood Urea Nitrogen 31 mg/dL (6-24); CO2 Carbon Dioxide 20 mmol/L (22-32); Calcium 8.8 mg/dL (8.6-10.3); Chloride 107 mmol/L (101-111); EGFR Non-African American 28.9 (>60); Globulin 3.1 g/dL (2-4); Glucose 366 mg/dL (70-100); Potassium 4.4 mmol/L (3.5-5.0); Sodium 137 mmol/L (135-145); Total Protein 6.8 g/dL (6.4-8.9)
[2018-12-05] MEDS ORDERED: Aspirin TAB* 325 MG PO ONE (20:00)
[2018-12-05] MEDS ORDERED: Clopidogrel TAB* 300 MG PO ONE (20:07)
[2018-12-05] MEDS ORDERED: Metoprolol Tartrate IV* 1 MG/ML 5 ML VIAL IV ONE (20:09)
[2018-12-05] MEDS: Heparin VIAL(*) 5000 UNITS/ML VIAL (FIVE THOUSAND) IV PRN (20:40)
[2018-12-05] MEDS: Heparin DRIP 25,000 UNITS(*) 25,000 UNITS/500 ML BAG IV SCH (20:41)
[2018-12-05 20:58] LABS: Troponin I 1.42 ng/mL (<0.04)
[2018-12-05] MEDS ORDERED: HYDROcodone/ACETAMIN 5-325 MG* 1 TAB PO PRN (22:14)
[2018-12-05] MEDS ORDERED: Nitroglycerin TAB 0.4 MG* 0.4 MG TAB SL PRN (22:14)
[2018-12-05] MEDS ORDERED: Docusate CAP* 100 MG PO PRN (22:14)
[2018-12-05] MEDS ORDERED: Dextrose 50% Syringe 50 ML* 25 GM/50 ML SYRINGE IV PUSH PRN (22:17)
--- NOTE | 2018-12-05 22:34 | ADMNOTE ---
Subjective Date of Service: 12/05/18 Interval History: HISTORY & PHYSICAL PCP: Felix CC: chest pain HPI: Patient is an 88 year old woman with CAD and dementia, who lives at [facility] ([facility] She reported chest pain at [facility] this evening, that lasted 1 minute according to ER records. An ambulance was summoned, and she was brought to ER. She denied chest pain ER, denies radiation of pain to neck or arms, denies nausea,vomiting, or dyspnea. She has known CAD, sees cardiology "occasionally." Denies history of angina. Cardiac history includes stent to LAD and diagonal pre-2009, followed by CABG ( ZAVALA to LAD) in 05/2010. She had an echo in 2011 that was essentially within normal limits, with EF in 65% range. 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 Never smoker, no alcohol/ drugs Past Medical History: Findings - mild dementia, type 2 diabetes, hypothyroid, hypertension, hyperlipidemia, CAD as above, osteoarthritis, GERD, recurrent UTIs , iron-def anemia, CKD with recent creatinine 1.35-1.5; PSH: CABG, ectopic Review of Systems - Measurements Intake and Output: Intake and Output Last 24 Hours 12/03/18 12/04/18 12/05/18 12/06/18 06:59 06:59 06:59 06:59 Weight 62.142 kg - Review of Systems Constitutional Symptoms: Negative: Weight Gain, Weight Loss, Fever Dermatology: Positive: Normal HEENT: Positive: Normal Thyroid: Positive: Normal Pulmonary: Positive: Normal Cardiology: Positive: Chest Pain Negative: Shortness of Breath Gastroenterology: Positive: Normal Genital - Urinary: Positive: Normal Genitourinay - Female: Positive: Menopause Musculoskeletal: Positive: Joint Stiffness, Arthritis Endocrinology: Positive: Diabetes Mellitus Hematologic/Lymphatic: Positive: Anemia Neurology: Positive: Normal Psychiatry: Positive: Normal Objective Active Medications: Hydrocodone Bitart/Acetaminophen (Weston 5-325 Tab*) 0.5 tab PO BID PRN PRN Reason: PAIN Aspirin (Aspirin Ec Tab*) 81 mg PO DAILY [facility] Atorvastatin Calcium (Lipitor*) 20 mg PO BEDTIME [facility] Cholecalciferol (Vitamin D Tab*) 1,000 units PO DAILY [facility] Docusate Sodium (Colace Cap*) 100 mg PO BID PRN PRN Reason: CONSTIPATION Donepezil HCl (Aricept Tab*) 10 mg PO DAILY [facility] Ferrous Sulfate (Ferrous Sulfate Tab*) 325 mg PO MOWEFR [facility] Glipizide (Glucotrol Tab*) 10 mg PO BID [facility] Insulin Human Lispro (Humalog*) 0 units SUBCUT AC [facility]; Protocol Levothyroxine Sodium (Synthroid Tab*) 50 mcg PO DAILY [facility] Lisinopril (Prinivil Tab*) 10 mg PO DAILY [facility] Memantine (Namenda Tab*) 10 mg PO BID [facility] Metoprolol Tartrate (Lopressor Tab*) 25 mg PO QAM [facility] Metoprolol Tartrate (Lopressor Tab*) 50 mg PO QPM [facility] Nitroglycerin (Nitroglycerin Tab 0.4 Mg*) 0.4 mg SL Q5M PRN PRN Reason: PAIN - CHEST Non-Formulary Medication (Acetaminophen [Acetaminophen Extra Stren]) 500 mg PO BID [facility] Non-Formulary Medication (Cyanocobalamin (Vitamin B-12) [B-12]) 1,000 mcg PO DAILY [facility] Non-Formulary Medication (Insulin Glargine,Hum.Rec.Anlog [Lantus Solostar 5x3 Ml Pens]) 30 units SUBCUT DAILY [facility] Vital Signs - 8 hr 12/05/18 12/05/18 12/05/18 18:45 18:46 19:00 Temperature 36.6 C Pulse Rate 79 83 Respiratory 11 12 10 Rate Blood Pressure 144/71 144/71 (mmHg) O2 Sat by Pulse 98 99 Oximetry 12/05/18 12/05/18 19:16 19:46 Temperature Pulse Rate 77 Respiratory 10 7 Rate Blood Pressure 134/69 141/73 (mmHg) O2 Sat by Pulse 100 Oximetry Oxygen Devices in Use Now: None Appearance: alert, no distress Eyes: No Scleral Icterus Ears/Nose/Mouth/Throat: NL Teeth, Lips, Gums Neck: NL Appearance and Movements; NL JVP Respiratory: Symmetrical Chest Expansion and Respiratory Effort Cardiovascular: NL Sounds; No Murmurs; No JVD, No Edema, - - absent DP pulses Abdominal: NL Sounds; No Tenderness; No Distention Lymphatic: No Cervical Adenopathy Extremities: No Edema Skin: No Rash or Ulcers Neurological: - - alert, oriented to person, place Lines/Tubes/Other Access: Clean, Dry and Intact Peripheral IV Nutrition: Taking PO's Result Diagrams: 12/06/18 05:16 12/06/18 05:16 Additional Lab and Data: Laboratory Tests 12/05/18 12/05/18 12/05/18 19:11 19:11 19:11 INR (Anticoag Therapy) 0.94 APTT Lactic Acid 2.7 H* Alkaline Phosphatase 140 H Troponin I 1.40 H* 12/05/18 12/05/18 19:11 20:30 INR (Anticoag Therapy) APTT 27.9 Lactic Acid Alkaline Phosphatase Troponin I 1.42 H* Diagnostic Imaging: CXR: no infiltrates or effusion EKG Data: NSR, normal axis, ST depressions I, II, aVL, V2-v6, ST depressions are new compared w/ previous Assess/Plan/Problems-Billing Assessment: 88 year old woman w/ non-STEMI - Patient Problems (1) Non-STEMI (non-ST elevated myocardial infarction) Current Visit: Yes Status: Acute Priority: High Code(s): I21.4 - NON-ST ELEVATION (NSTEMI) MYOCARDIAL INFARCTION SNOMED Code(s): 43941331 Comment: -Patient clearly having non-STEMI w/ elevated troponins and ischemia present on EKG -Will admit to telemetry floor, trend troponins, observe for arrhythmias. -Will consult with cardiology re further management -Will use nitro if further angina occurs -Continue heparin drip -Continue aspirin, beta casandra as anti-thrombotic, and anti-anginal. (2) Type 2 diabetes mellitus Current Visit: No Status: Acute Priority: Medium Comment: -Diabetes not the immediate cause of LA -Will monitor, ensure tight control of blood sugar w/ sliding scale insulin. (3) DVT prophylaxis Current Visit: No Status: Acute Priority: Low Code(s): KNL6566 - SNOMED Code(s): 404705626 Comment: -on IV heparin Status and Disposition: inpatient
[2018-12-05 22:48] LABS: Troponin I 1.99 ng/mL (<0.04)
[2018-12-05 23:53] LABS: ABS Basophils 0.1 10^3/ul (0-0.2); ABS Eosinophils 0.1 10^3/ul (0-0.6); ABS Lymphocytes 2.9 10^3/ul (1.0-4.8); ABS Monocytes 1.3 10^3/ul (0-0.8); ABS Neutrophils 7.6 10^3/ul (1.5-7.7); ABS Nucleated RBC 0 10^3/ul; Eosinophil % 1.2 %; Hematocrit 38 % (33-41); Hemoglobin 12.6 g/dL (12.0-16.0); Mean Corpuscular HGB Conc 33 g/dL (31-36); Mean Corpuscular Hemoglobin 30 pg (27-31); Mean Corpuscular Volume 91 fL (80-97); Mean Platelet Volume 10.9 fL (7.4-10.4); Nucleated Red Blood Cells % 0; Platelet Count 232 10^3/uL (150-450); Red Blood Count 4.23 10^6 /uL (3.70-4.87); Red Cell Distribution Width 15 % (10.5-15)
[2018-12-06] MEDS: Metoprolol Tartrate TAB* 50 mg PO SCH ×2 (00:02→17:43)
[2018-12-06] MEDS: Atorvastatin* 20 MG TAB PO SCH ×2 (00:02→20:43)
[2018-12-06] MEDS: Donepezil TAB* 5 MG PO SCH ×2 (00:02→09:45)
[2018-12-06] MEDS: Memantine TAB* 10 MG PO SCH ×3 (00:04→20:43)
[2018-12-06 00:12] LABS: Blood Urea Nitrogen 31 mg/dL (6-24); EGFR African American 38.4 (>60); EGFR Non-African American 31.7 (>60)
[2018-12-06 00:16] LABS: Troponin I 1.95 ng/mL (<0.04)
[2018-12-06 02:50] LABS: Troponin I 2.24 ng/mL (<0.04)
[2018-12-06 05:51] LABS: ABS Basophils 0 10^3/ul (0-0.2); ABS Eosinophils 0.2 10^3/ul (0-0.6); ABS Lymphocytes 1.9 10^3/ul (1.0-4.8); ABS Monocytes 1.1 10^3/ul (0-0.8); ABS Neutrophils 6.2 10^3/ul (1.5-7.7); ABS Nucleated RBC 0 10^3/ul; Eosinophil % 1.8 %; Hematocrit 37 % (33-41); Hemoglobin 12.1 g/dL (12.0-16.0); Lymphocyte % 20.2 %; Mean Corpuscular HGB Conc 33 g/dL (31-36); Mean Corpuscular Hemoglobin 30 pg (27-31); Mean Corpuscular Volume 91 fL (80-97); Mean Platelet Volume 11.2 fL (7.4-10.4); Nucleated Red Blood Cells % 0; Platelet Count 215 10^3/uL (150-450); Red Blood Count 4.06 10^6 /uL (3.70-4.87); Red Cell Distribution Width 15 % (10.5-15); White Blood Count 9.3 10^3/uL (3.5-10.8)
[2018-12-06] MEDS: Levothyroxine TAB* 50 MCG TAB PO SCH (06:01)
[2018-12-06 06:09] LABS: BUN/Creatinine Ratio 19.2 (8-20); EGFR African American 41.1 (>60); Potassium 4.1 mmol/L (3.5-5.0)
[2018-12-06 06:11] LABS: Troponin I 1.91 ng/mL (<0.04)
[2018-12-06] MEDS ORDERED: glipiZIDE TAB* 5 MG PO SCH (09:00)
[2018-12-06] MEDS ORDERED: Insulin GLARGINE(*) 1 UNITS UNIT SUBCUT SCH (09:00)
[2018-12-06] MEDS: Metoprolol Tartrate TAB* 25 MG PO SCH (09:43)
[2018-12-06] MEDS: Aspirin EC TAB* 81 MG TAB.EC PO SCH (09:44)
[2018-12-06] MEDS: Cyanocobalamin TAB* 500 MCG PO SCH (09:44)
[2018-12-06] MEDS: Cholecalciferol TAB* 1000 UNITS PO SCH (09:45)
[2018-12-06] MEDS: Lisinopril TAB* 10 MG PO SCH (09:45)
[2018-12-06] MEDS: Acetaminophen TAB* 325 MG PO SCH ×2 (09:45→20:43)
[2018-12-06] MEDS: Insulin LISPRO* 1 UNITS UNIT SUBCUT SCH ×3 (09:49→17:43)
[2018-12-06] MEDS: Heparin VIAL(*) 5000 UNITS/ML VIAL (FIVE THOUSAND) IV PRN (16:17)
--- NOTE | 2018-12-06 16:33 | PN ---
Subjective Date of Service: 12/06/18 Interval History: HOSPITALIST PROGRESS NOTE Patient seen and examined at bedside. Care reviewed and d/w Glenna Nunes RN. She feels well today, denies CP, anxious for discharge. Aware she has memory issues and does not remember why she came in. Family History: Unchanged from Admission Social History: Unchanged from Admission Past Medical History: Unchanged from Admission Objective Active Medications: Acetaminophen (Tylenol Tab*) 487.5 mg PO BID [facility] Last Admin: 12/06/18 09:45 Dose: 487.5 mg Hydrocodone Bitart/Acetaminophen ([place] 5-325 Tab*) 0.5 tab PO BID PRN PRN Reason: PAIN Aspirin (Aspirin Ec Tab*) 81 mg PO DAILY [facility] Last Admin: 12/06/18 09:44 Dose: 81 mg Atorvastatin Calcium (Lipitor*) 20 mg PO BEDTIME [facility] Last Admin: 12/06/18 00:02 Dose: 20 mg Cholecalciferol (Vitamin D Tab*) 1,000 units PO DAILY [facility] Last Admin: 12/06/18 09:45 Dose: 1,000 units Cyanocobalamin (Vitamin B12 Tab*) 1,000 mcg PO DAILY [facility] Last Admin: 12/06/18 09:44 Dose: 1,000 mcg Dextrose (D50w Syringe 50 Ml*) 12.5 gm IV PUSH .FOR FS < 60 - SS PRN PRN Reason: FS < 60 Docusate Sodium (Colace Cap*) 100 mg PO BID PRN PRN Reason: CONSTIPATION Donepezil HCl (Aricept Tab*) 10 mg PO DAILY [facility] Last Admin: 12/06/18 09:45 Dose: 10 mg Ferrous Sulfate (Ferrous Sulfate Tab*) 325 mg PO MoWeFr@0900 [facility] Glipizide (Glucotrol Tab*) 10 mg PO BID [facility] Last Admin: 12/06/18 09:45 Dose: 10 mg Heparin Sodium (Porcine) (Heparin Vial(*)) 0 units IV .HEPARIN DRIP BOLUS PRN PRN Reason: HEPARIN DRIP BOLUSES Last Admin: 12/06/18 16:17 Dose: 1,850 units Heparin Sodium/Dextrose (Heparin Drip 25,000 Units(*)) 25,000 units in 500 mls @ 0 mls/hr IV PER RATE [facility]; Protocol Last Admin: 12/05/18 20:41 Dose: 15 mls/hr Insulin Glargine (Lantus(*)) 30 units SUBCUT DAILY [facility] Last Admin: 12/06/18 09:47 Dose: 30 units Insulin Human Lispro (Humalog*) 0 units SUBCUT AC [facility]; Protocol Last Admin: 12/06/18 13:07 Dose: 2 units Levothyroxine Sodium (Synthroid Tab*) 50 mcg PO 0600 [facility] Last Admin: 12/06/18 06:01 Dose: 50 mcg Lisinopril (Prinivil Tab*) 10 mg PO DAILY [facility] Last Admin: 12/06/18 09:45 Dose: 10 mg Memantine (Namenda Tab*) 10 mg PO BID [facility] Last Admin: 12/06/18 09:45 Dose: 10 mg Metoprolol Tartrate (Lopressor Tab*) 25 mg PO QAM [facility] Last Admin: 12/06/18 09:43 Dose: 25 mg Metoprolol Tartrate (Lopressor Tab*) 50 mg PO QPM [facility] Last Admin: 12/06/18 00:02 Dose: 50 mg Nitroglycerin (Nitroglycerin Tab 0.4 Mg*) 0.4 mg SL Q5M PRN PRN Reason: PAIN - CHEST Vital Signs - 8 hr 12/06/18 16:01 Temperature 98.0 F Pulse Rate 78 Respiratory 16 Rate Blood Pressure 121/66 (mmHg) O2 Sat by Pulse 98 Oximetry Oxygen Devices in Use Now: None Appearance: Elderly lady sitting up in bed in [facility]. Eyes: No Scleral Icterus Ears/Nose/Mouth/Throat: Mucous Membranes Moist Neck: Trachea Midline Respiratory: Symmetrical Chest Expansion and Respiratory Effort, Clear to Auscultation Cardiovascular: RRR - Normal S1 and S2 Abdominal: NL Sounds; No Tenderness; No Distention Extremities: No Edema Neurological: - - AAOx1 (self only), LANDERS Result Diagrams: 12/06/18 05:16 12/06/18 05:16 Assess/Plan/Problems-Billing Assessment: Mrs Hogan is an 88 yo F with PMH of mild dementia, type 2 DM, HTN, HLD, hypothyroidism, CAD s/p stent and CABG 2009, who presented to ED with c/o CP, found to have NSTEMI. - Patient Problems (1) Non-STEMI (non-ST elevated myocardial infarction) Comment: - Troponin has peaked, but she has persistent ischemic changes on her EKG. - Remains chest pain free. - Continue Aspirin, heparin drip, Atorvastatin, metoprolol, nitro PRN. - Cardiology input appreciated - recommended pharmacological ST, but daughter does not want to pursue it. States their family goal at this time is for comfort and would not want to pursue aggressive/invasive measures. - Will request Palliative care consult. (2) Type 2 diabetes mellitus Comment: - D/c Glipizide. - Continue Lantus and Lispro SS. (3) HTN (hypertension) Comment: - Controlled. - Continue Lisinopril and Metoprolol. (4) Hypothyroidism Comment: - Continue Levothyroxine. (5) DVT prophylaxis Comment: - Heparin drip. (6) DNR (do not resuscitate) Status and Disposition: Inpatient. Daughter (Christiano Hogan) called and updated.
--- NOTE | 2018-12-06 17:31 | CONS ---
CARDIOLOGY CONSULTATION: DATE OF CONSULT: 12/06/18 REFERRAL PHYSICIAN: Jose J Gibson MD. REASON FOR CARDIOLOGY CONSULTATION: Non-Q-wave VA. HISTORY OF PRESENT ILLNESS: Ms. Hogan is an 88-year-old woman with severe dementia whom I have cared for for at least 9 years with a history of coronary artery disease, status post coronary artery bypass grafting in 2009. Her dementia is quite significant including that for the few years she has not even recognized me at her annual visits. In any case, the patient apparently had chest pain yesterday, where she resides at [facility] and was brought to the hospital. Here, she was found to have non-Q-wave VA with elevated troponin, which has peaked at 2.24 and her EKG demonstrated anterolateral ST-T wave changes, more pronounced from prior. The patient herself states that she does seem to recall that she had chest pain yesterday but cannot provide me any details regarding that. She does state that she has no chest pain now and she feels well. She is currently not oriented to place, time, and does not know who the president is. PAST MEDICAL HISTORY: She has known CAD with CABG in 05/24/2010 with ZAVALA to the LAD and vein graft to the diagonal vessel.May 2010. The patient completed a transthoracic echocardiogram 01/21/2014 which showed decreased left ventricular size with mild to moderate concentric left ventricular hypertrophy, diastolic dysfunction, normal left ventricular ejection fraction calculated at 61% with functionally benign heart valves. When compared to prior echocardiogram completed 11/28/2011, prior normal left ventricular size noted and prior concentric left ventricular hypertrophy not noted. The patient completed a normal cardiac chemical nuclear stress test 02/28/2014 with no evidence of ischemia nor infarction with normal LV function. When compared to prior cardiac chemical nuclear stress test completed at this facility on 2011, there is no significant change. Other past medical history includes severe dementia, type 2 diabetes, hypothyroidism, hypertension, hyperlipidemia, osteoarthritis, GERD, recurrent UTIs, iron deficiency anemia, and chronic kidney disease. OUTPATIENT MEDICATIONS: 1. Aspirin 81 mg once a day. 2. Lipitor 20 mg once a day. 3. Aricept 10 mg once a day. 4. Glipizide 10 mg p.o. b.i.d. 5. Humalog sliding scale protocol as directed. 6. Synthroid 50 mcg once a day. 7. Lisinopril 10 mg once a day. 8. Namenda 10 mg p.o. b.i.d. 9. Lopressor 25 mg in the morning and 50 mg in the evening. ALLERGIES: Per chart review states AMOXICILLIN and SULFA. FAMILY HISTORY: Unable to obtain as noted as above due to patient's severe dementia. SOCIAL HISTORY: Unable to obtain as noted as above due to patient's severe dementia. REVIEW OF SYSTEMS: Unable to obtain as noted as above due to patient's severe dementia. PHYSICAL EXAM: Height 5 feet 4 inches, weight 157 pounds, temperature 97 degrees, pulse 75, blood pressure 137/63, O2 saturation 98%. On general exam, she is a pleasant lady who is alert and again not oriented to place, time, and does not know who the president is. She also does not recognize me despite our longstanding physician-patient relationship. This is consistent with her baseline. HEENT shows cranium is normocephalic and atraumatic. She has dry mucosal membranes. Neck veins are not distended. There are no carotid bruits. Visible skin warm and perfused. Affect is pleasant, although she does become easily irritable. Mild kyphoscoliosis on back exam, likely age-related and seems stable. Lungs are clear to auscultation. No wheezes, no rales. Cardiac Exam: S1, S2, regular rate. No significant murmurs, rubs, or gallops. PMI is nondisplaced. Abdomen: Soft, nondistended, appears benign. Extremities without significant edema. Pulses appear grossly intact. DIAGNOSTIC STUDIES/LAB DATA: A 12-lead EKG reviewed from 12/05/18 at 1949, which demonstrates sinus rhythm at 77 beats per minute with anterolateral ST-T wave changes. These changes appear more pronounced when compared to prior EKG completed on 08/30/18. Sodium 143, potassium 4.1, chloride 112, bicarbonate 22, BUN 28, creatinine 1.46. This seems consistent with her recent baseline. Troponin on admission 1.40 has peaked at 2.24, last 1.91. INR 0.94. White blood cell count 9.3, hematocrit 37, and platelet count 215. IMPRESSION: Ms. Hogan is a pleasant 88-year-old woman with a history of significant dementia as well as coronary artery disease, status post coronary artery bypass grafting in May 2010, now admitted with non-Q-wave myocardial infarction. She is pain-free now. At this point, given her significant comorbid issues including significant dementia and chronic renal insufficiency and the fact that she is otherwise clinically stable at this time without signs or symptoms of ongoing myocardial ischemia, I feel it is appropriate to noninvasively risk-stratify the patient. RECOMMENDATIONS: 1. She should continue aspirin, statin, beta-casandra, Kj inhibitor. 2. Plan for cardiac chemical nuclear stress test in the morning. 3. Other management as per the hospitalist management service and I have discussed the case with Dr. Dobson of the service. Dear Dr. Jose J Gibson and Dr. Dobson: Many thanks for asking me to participate in the cardiovascular consultative care of Ms. Hogan. Please do not hesitate to contact me if you have any questions or concerns regarding the patient's cardiovascular consultative care. We look forward to following the patient with you. Case discussed with Dr. Dobson. Addendum; kindly notified this evening by Dr. Dobson that patient's daughter has declined further cardiac testing (including stress test nor cardiac cath) for the patient and they wish to pursue medical therapy only. Other as above. [id number]/[facility] #: [id number] [facility] CENTERSonali
[2018-12-06] MEDS: Heparin DRIP 25,000 UNITS(*) 25,000 UNITS/500 ML BAG IV SCH (20:45)
[2018-12-07 04:44] LABS: ABS Basophils 0 10^3/ul (0-0.2); ABS Eosinophils 0.2 10^3/ul (0-0.6); ABS Lymphocytes 1.7 10^3/ul (1.0-4.8); ABS Monocytes 1.2 10^3/ul (0-0.8); ABS Neutrophils 7.3 10^3/ul (1.5-7.7); ABS Nucleated RBC 0 10^3/ul; Eosinophil % 1.5 %; Hematocrit 37 % (33-41); Lymphocyte % 16.5 %; Mean Corpuscular HGB Conc 33 g/dL (31-36); Mean Corpuscular Hemoglobin 30 pg (27-31); Mean Corpuscular Volume 91 fL (80-97); Mean Platelet Volume 10.5 fL (7.4-10.4); Nucleated Red Blood Cells % 0; Platelet Count 213 10^3/uL (150-450); Red Blood Count 4.06 10^6 /uL (3.70-4.87); Red Cell Distribution Width 15 % (10.5-15); White Blood Count 10.4 10^3/uL (3.5-10.8)
[2018-12-07 04:59] LABS: EGFR Non-African American 28.9 (>60)
[2018-12-07] MEDS: Levothyroxine TAB* 50 MCG TAB PO SCH (05:13)
[2018-12-07] MEDS ORDERED: Regadenoson* 0.4 MG/5 ML SYRINGE ONE (07:36)
[2018-12-07 07:44] VITALS: BP 130/58
[2018-12-07] MEDS: Insulin LISPRO* 1 UNITS UNIT SUBCUT SCH ×2 (07:57→11:15)
[2018-12-07] MEDS: Acetaminophen TAB* 325 MG PO SCH (08:09)
[2018-12-07] MEDS: Lisinopril TAB* 10 MG PO SCH (08:10)
[2018-12-07] MEDS: Aspirin EC TAB* 81 MG TAB.EC PO SCH (08:10)
[2018-12-07] MEDS: Metoprolol Tartrate TAB* 25 MG PO SCH (08:10)
[2018-12-07] MEDS: Cholecalciferol TAB* 1000 UNITS PO SCH (08:10)
[2018-12-07] MEDS: Donepezil TAB* 5 MG PO SCH (08:11)
[2018-12-07] MEDS: Memantine TAB* 10 MG PO SCH (08:11)
[2018-12-07] MEDS: Cyanocobalamin TAB* 500 MCG PO SCH (08:11)
[2018-12-07] MEDS ORDERED: Ferrous Sulfate TAB* 325 MG PO SCH (09:00)
[2018-12-07] MEDS ORDERED: Insulin GLARGINE(*) 1 UNITS UNIT SUBCUT SCH ×2 (09:00)
--- NOTE | 2018-12-07 11:57 | DS ---
CC: Dr. Washington; Dr. Frazier with [facility] * DATE OF ADMISSION: 12/05/2018. DATE OF DISCHARGE: 12/07/2018. DISCHARGE DIAGNOSIS: [id number] RI. SECONDARY DIAGNOSES: 1. Dementia. 2. Type 2 diabetes. 3. Hypothyroidism. 4. Hypertension. 5. Hyperlipidemia. 6. Coronary artery disease, status post stent and CABG in 2009. 7. Osteoarthritis. 8. GERD. 9. Recurrent UTI's. 10. Iron deficiency anemia. 11. CKD stage 3. MEDICATIONS: 1. Acetaminophen 500 mg p.o. b.i.d. 2. Aspirin 81 mg p.o. daily. 3. Atorvastatin 20 mg p.o. at bedtime. 4. Cholecalciferol 1,000 units p.o. daily. 5. Cranberry 400 mg p.o. daily. 6. Cyanocobalamin 1,000 mcg p.o. daily. 7. Colace 100 mg p.o. b.i.d. prn constipation. 8. Donepezil 10 mg p.o. daily. 9. Ferrous Sulfate 325 mg p.o. Mondays, Wednesdays, and Fridays. 10. Fexofenadine 60 mg p.o. daily. 11. Glipizide 10 mg p.o. b.i.d. 12. Hydrocodone/acetaminophen 5/325 mg [id number] p.o. b.i.d. as needed for pain. 13. Lantus 30 units subcutaneously daily. 14. Lispro 7 units subcutaneously before meals. 15. Levothyroxine 50 mcg p.o. daily. 16. Lisinopril 10 mg p.o. daily. 17. Memantine 10 mg p.o. b.i.d. 18. Metoprolol Succinate 50 mg p.o. at bedtime. 19. Metoprolol Tartrate 25 mg p.o. in the morning. 20. Nitroglycerin 0.4 mg sublingual q.5 minutes prn chest pain, maximum 3 doses. HOSPITAL COURSE: Ms. Hogan is an 88-year-old lady with a past medical history stated above who presented to the emergency room after developing chest pain. For more details about her presentation, I refer you to her history and physical. The patient was found to have a known ST-elevation RI with troponin elevation that peaked at 2.2 and ischemic EKG changes on the anterolateral leads. The patient was admitted for further management. She received 48 hours of Heparin drip. She was continued on aspirin, Atorvastatin, Metoprolol, and an Kj inhibitor. The patient was seen in consultation by Cardiology (Dr. Dixon) and his recommendation was for a pharmacological nuclear stress test. The patient's daughter (Christiano Hogan) was called and after we reviewed the patient's diagnosis, risks and benefits, her decision was to not pursue stress test or any other aggressive/invasive measures as the goal at this time is for quality of life. She did contact her brothers who are in agreement with this decision and she called me today to inform me. The plan at this time is for the patient to return to [facility] and continue only medical management as it is being done. Referral will be made for Hospice. The plan will be to keep the patient comfortable at [facility] until she passes. The daughter really reinforces that the goal at this time is for quality of life for her mom. I did call Dr. Washington and left a message so that we can coordinate the hospice care evaluation and make sure the patient has a do not hospitalize order. The patient is chest pain free and medically stable for discharge today. PHYSICAL EXAMINATION: General: The patient is an elderly lady, pleasantly confused, sitting up in bed in no acute distress. Vital Signs: Temperature 98.2, heart rate 85, respiratory rate 16, oxygen saturation 99 percent on room air, blood pressure 130/58. CVS: Normal S1, S2, regular rate and rhythm. Chest : Breath sounds bilaterally with no added sounds. Abdomen: Soft, bowel sounds are present. Neuro: She is alert and oriented times one to self only, able to move all four extremities. DIET: Regular diet for comfort. ACTIVITY: As tolerated. DISPOSITION: To [facility]. STATUS WHILE IN THE HOSPITAL: Inpatient. CONDITION AT THE TIME DISCHARGE: Guarded. Please keep in mind, the plan is for the patient to return to [facility], be evaluated by hospice, and avoid further hospitalizations. I called her primary care provider, Dr. Washington, and I am awaiting for his return phone call. The patient's daughter was also updated about this plan and she is in agreement. TIME SPENT: Approximately 50 minutes were spent to complete this discharge. [id number]/[facility] #: [id number] [facility]ALSonali
== END 2018-12-07 13:30 | DRG 282 ==
LOC: ED 18:43 → MEDTELE 21:46
PROVIDERS: ADMIT Internal Medicine; ATTEND Internal Medicine
DX: I21.4 Non-ST elevation (NSTEMI) myocardial infarction (principal); F03.90 Unspecified dementia, unspecified severity, without behavioral disturbance, psychotic disturbance, mood disturbance, and anxiety; E11.22 Type 2 diabetes mellitus with diabetic chronic kidney disease; I12.9 Hypertensive chronic kidney disease with stage 1 through stage 4 chronic kidney disease, or unspecified chronic kidney disease; N18.3 Chronic kidney disease, stage 3 (moderate); E03.9 Hypothyroidism, unspecified; E78.5 Hyperlipidemia, unspecified; Z66 Do not resuscitate; I25.10 Atherosclerotic heart disease of native coronary artery without angina pectoris; M19.90 Unspecified osteoarthritis, unspecified site; K21.9 Gastro-esophageal reflux disease without esophagitis; D50.9 Iron deficiency anemia, unspecified; Z95.1 Presence of aortocoronary bypass graft; Z87.440 Personal history of urinary (tract) infections; Z82.49 Family history of ischemic heart disease and other diseases of the circulatory system; Z80.42 Family history of malignant neoplasm of prostate; Z88.1 Allergy status to other antibiotic agents; Z88.2 Allergy status to sulfonamides
CPT/HCPCS: 36415; 71045; 80048; 80053; 82565; 83605; 84484; 84520; 85025; 85610; 85730; 87641; 93005; 99285; A9270-GY; J1644; J2785; J3490